=== PATIENT | female | born 1995 | race Caucasian/White ===

== ENCOUNTER 2022-07-25 14:04 | Outpatient (CLI) | payer BC, SELFPAY ==
--- OUTSIDE RECORDS SUMMARY | 2022-07-25 14:08 | XMS_ITS | Clinical Summary ---
:1995 Author Organization [facility] [place] [address] Care Team Providers Name Role Phone Pcp, No Primary Care Provider Unavailable Allergies No known active allergies Medications Medication Sig Dispensed Refills Start Date End Date Status norethindrone, Take 1 Tablet 3 Packet 3 01/03/2022 Active Contraceptive, (0.35 mg) by (Marisa CRYSTAL,) 0.35 mg mouth once tabletIndications: daily. Encounter for initial prescription of contraceptive pills Active Problems Problem Noted Date Pap smear for cervical cancer screening 12/20/2021 Overview: 12/2021 NIL. Plan:Pap/HPV due 12/2024 Family History Medical History Relation Name Comments Hyperlipidemia Father No Known Problems Mother No Known Problems Sister 1 No Known Problems Sister 2 Relation Name Status Comments Father Alive Mother Alive Sister 1 Alive Sister 2 Alive Social History Tobacco Use Types Packs/Day Years Used Date Never Smoker Smokeless Tobacco: Never Used Tobacco Cessation: Counseling Given: Yes Alcohol Use Standard Drinks/Week Comments Yes 0 (1 standard drink = 0.6 oz pure alcoho l) Sex Assigned at Date Recorded Not on file Obstetrics History Para Term AB IAB SAB Ectopic Multiple Living Live Births 0 0 0 0 0 0 0 0 0 0 0 Last Filed Vital Signs Vital Sign Reading Time Taken Comments Blood Pressure 142/80 01/03/2022 12:04 PM FINANCE ADMIN manual Pulse 62 01/03/2022 11:16 AM FINANCE ADMIN Temperature - - Respiratory Rate - - Oxygen Saturation 100% 01/03/2022 11:16 AM FINANCE ADMIN Inhaled Oxygen Concentration - - Weight 58.1 kg (128 lb) 01/03/2022 11:16 AM FINANCE ADMIN Height 166.5 cm (5' 5.55) 01/03/2022 11:16 AM FINANCE ADMIN Body Mass Index 20.94 01/03/2022 11:16 AM FINANCE ADMIN Plan of Treatment Health Maintenance Due Date Last Done Comments COVID-19 vaccine series (#1) 1993 Tdap 2004 Hepatitis C screening for age 18-79 2011 Tetanus booster 2013 Influenza for age 9-49 07/20/2022 BMI (ht and wt on same day) for age 18+ 01/03/2023 01/03/20 Depression screening for age 12+ 01/03/2023 01/03/2022 Pap test for age 21-65 01/03/2025 01/03/2022 Results Not on filefrom Last 3 Months Insurance Payer Benefit Plan / Subscriber ID Effective Dates Phone Addre ss Type Group BLUE CROSS BLUE CROSS OF [id number] 2021-[facility] [address] [facility] [place] [address] Care Teams Scholastic Aptitude Test Grader Relationship Specialty Start Date End Date Pcp, No PCP - General 01/03/22 .
[2022-07-25 17:22] LABS: Hepatitis B Surface Antigen* Negative (Negative)
[2022-07-25 17:33] LABS: HIV 1/2/P24 Combo Screen* Negative (Negative)
[2022-07-25 17:40] LABS: Hepatitis C Virus Antibody* Negative (Negative)
[2022-07-25 18:59] LABS: Chlamydia DNA Amplified* NOT DETECTED (No Detected); GC DNA Amplified* NOT DETECTED (No Detected)
[2022-07-27 17:20] LABS: Rapid Plasma Reagin (RPR) Non Reactive (Non Reactive)
[2022-07-27 23:17] LABS: Rubella Antibody IgG 26.5 IU/mL
== END 2022-07-25 14:05 | disposition home or self-care (01) ==
PROVIDERS: Visit Provider Registered Nurse
DX: Z34.91 Encounter for supervision of normal pregnancy, unspecified, first trimester (principal)
CPT/HCPCS: 76817; 86592; 86703; 86762; 86803; 86850; 86900; 86901; 87086; 87340; 87491; 87591

== ENCOUNTER 2022-08-22 10:08 | Outpatient (CLI) | payer BC, SELFPAY ==
--- OUTSIDE RECORDS SUMMARY | 2022-08-22 10:11 | XMS_ITS | Clinical Summary ---
:1995 Author Organization [facility] [place] [address] Care Team Providers Name Role Phone Pcp, [...] Comments Blood Pressure 142/80 01/03/2022 12:04 PM HOSPITAL FELLOW manual Pulse 62 01/03/2022 11:16 AM HOSPITAL FELLOW Temperature - - Respiratory Rate - - Oxygen Saturation 100% 01/03/2022 11:16 AM HOSPITAL FELLOW Inhaled Oxygen Concentration - - Weight 58.1 kg (128 lb) 01/03/2022 11:16 AM HOSPITAL FELLOW Height 166.5 cm (5' 5.55) 01/03/2022 11:16 AM HOSPITAL FELLOW Body Mass Index 20.94 01/03/2022 11:16 AM HOSPITAL FELLOW Plan of Treatment Health Maintenance Due Date [...] Type Group BLUE CROSS BLUE CROSS OF [id number] 2021-[facility] [address] [facility] [place] [address] Care Teams Incident Response Engineer Relationship Specialty Start Date End Date Pcp, No PCP - General 01/03/22 .
[2022-08-22 11:08] LABS: Total Protein Urine 6 mg/dL
[2022-08-22 11:11] LABS: Creatinine Urine 175.1 mg/dL
[2022-08-22 12:45] LABS: Alanine Aminotransferase* 16 U/L (4-35); Aspartate Amino Transferase* 24 U/L (12-35); Creatinine* 0.6 mg/dL (0.5-1.5); Estimated Glomerular Filt Rate 125 ml/min
[2022-08-22 12:46] LABS: Blood Urea Nitrogen* 11 mg/dL (5-24)
== END 2022-08-22 10:09 | disposition home or self-care (01) ==
PROVIDERS: Visit Provider Obstetrics & Gynecology
DX: O10.911 Unspecified pre-existing hypertension complicating pregnancy, first trimester (principal)
CPT/HCPCS: 82565; 82570; 84156; 84450; 84460; 84520

== ENCOUNTER 2022-10-17 09:09 | Outpatient (CLI) | payer BC, SELFPAY ==
--- OUTSIDE RECORDS SUMMARY | 2022-10-17 09:11 | XMS_ITS | Clinical Summary ---
:1995 Author Organization [employer] [facility] [place] [address] Care Team Providers Name Role Phone Pcp, [...] Comments Blood Pressure 142/80 01/03/2022 12:04 PM SERVICER COIN MACHINES manual Pulse 62 01/03/2022 11:16 AM SERVICER COIN MACHINES Temperature - - Respiratory Rate - - Oxygen Saturation 100% 01/03/2022 11:16 AM SERVICER COIN MACHINES Inhaled Oxygen Concentration - - Weight 58.1 kg (128 lb) 01/03/2022 11:16 AM SERVICER COIN MACHINES Height 166.5 cm (5' 5.55) 01/03/2022 11:16 AM SERVICER COIN MACHINES Body Mass Index 20.94 01/03/2022 11:16 AM SERVICER COIN MACHINES Plan of Treatment Health Maintenance Due Date Last Done Comments COVID-19 vaccine series (#1) 1993 Tdap 2004 HIV for age 15-65 2008 Hepatitis C screening for age 18-79 2011 [...] Type Group BLUE CROSS BLUE CROSS OF [id number] 2021-[facility] [address] [place] [address] Care Teams Mandate Retail Service Merchandiser Relationship Specialty Start Date End Date Pcp, No PCP - General 01/03/22 .
--- NOTE | 2022-10-17 09:15 | CRLHL7_ITS ---
For Patients: As a result of the Century Cures Act, medical imaging exams and procedure reports are released immediately into your electronic medical record. You may view this report before your referring provider. If you have questions, please contact your health care provider. INDICATION: Evaluate anatomy. COMPARISON: 07/25/2022 TECHNIQUE: Real time ernst scale imaging of the fetus was performed as well as color Doppler analysis of the umbilical vessels. FINDINGS: Sonographic imaging demonstrates a single living intrauterine gestation. Fetus demonstrates a regular cardiac rate of 166 beats per minute. Fetus has a vertex position. The placenta lies anteriorly without evidence of placenta previa. The edge of the placenta is located 3.1 cm from the internal cervical os. Amniotic fluid volume appears normal. Single deepest vertical pocket: 3.3 cm. The cervix is closed and measures 3.7 cm in length. The composite ultrasound gestational age is calculated at 20 weeks 6 days with an estimated sonographic due date of 02/28/2023. The estimated weight is 362 grams which lies at the 37th %. The following biometric measurements were obtained: Biparietal diameter: 4.6 cm/19 weeks 6 days 16th% Head circumference: 17.6 cm/20 weeks 1 day 16th% Abdominal circumference: 16.0 cm/21 weeks 1 day 56th% Femur length: 3.3 cm/20 weeks 1 day 22nd% The HC/AC ratio measures: 1.10 range (1.06-1.25) On anatomic survey, there is a normal appearance of the cerebral ventricles, cavum septi pellucidi, cisterna magna and cerebellum. The nose, lips, and facial profile appear normal. The cervical, thoracic and lumbar spine are well visualized and appear normal. There is a normal four-chamber heart view and the left and right ventricular outflow tracts appear normal. The diaphragm and stomach appear normal. The kidneys and bladder also appear normal. There is a normal three-vessel cord and cord insertion site. The four extremities appear normal. IMPRESSION: Normal OB ultrasound exam with concordance of clinical and sonographic dating. No intrinsic abnormalities noted on anatomic survey. Dictated by Hemanth Alvarez MD @ 10/17/2022 11:11:08 AM (Electronically Signed)
== END 2022-10-17 09:10 | disposition home or self-care (01) ==
LOC: US 09:09
PROVIDERS: Visit Provider Advanced Practice Midwife
DX: Z34.82 Encounter for supervision of other normal pregnancy, second trimester (principal); Z3A.20 20 weeks gestation of pregnancy
CPT/HCPCS: 76805

== ENCOUNTER 2022-12-08 13:34 | Outpatient (CLI) | payer BC, SELFPAY ==
[2022-12-10 19:53] LABS: Rapid Plasma Reagin (RPR) Non Reactive (Non Reactive)
== END 2022-12-08 13:35 | disposition home or self-care (01) ==
PROVIDERS: Visit Provider Advanced Practice Midwife
DX: Z34.93 Encounter for supervision of normal pregnancy, unspecified, third trimester (principal)
CPT/HCPCS: 86592

== ENCOUNTER 2022-12-15 08:09 | Outpatient (CLI) | payer BC, SELFPAY ==
[2022-12-15 08:20] LABS: Glucose Fasting Check 89 mg/dl (60-115)
[2022-12-15 12:34] LABS: Glucose 1 Hour Gest 175 mg/dl (70-180)
[2022-12-15 12:34] LABS: Glucose GTT-Gestational 3 Hr 101 mg/dl (70-140)
== END 2022-12-15 08:10 | disposition home or self-care (01) ==
LOC: NFLDREF 08:10
PROVIDERS: Visit Provider Physician Assistant
DX: Z34.93 Encounter for supervision of normal pregnancy, unspecified, third trimester (principal); Z3A.30 30 weeks gestation of pregnancy
CPT/HCPCS: 82951; 82952

== ENCOUNTER 2023-01-09 08:34 | Outpatient (CLI) | payer BC, SELFPAY ==
--- NOTE | 2023-01-09 08:45 | CRLHL7_ITS ---
For Patients: As a result of the Century Cures Act, medical imaging exams and procedure reports are released immediately into your electronic medical record. You may view this report before your referring provider. If you have questions, please contact your health care provider. INDICATION: chronic HTN, COVID in TECHNIQUE: Real time ernst scale imaging of the fetus was performed. COMPARISON: 10.17.22 FINDINGS: Sonographic imaging demonstrates a single living intrauterine gestation. Fetus demonstrates a regular cardiac rate of 142 beats per minute. Fetus has a vertex position. The placenta lies anteriorly. Amniotic fluid volume appears normal and there is a single deepest pocket of 5.8 cm. The estimated weight is 1gm which lies at the 41st %. On the prior OB ultrasound dated 10/17/2022 the estimated weight was at the 37th percentile. BPD 28th percentile. HC 23rd percentile. AC 53rd percentile. FL 38th percentile. The fetus was active and demonstrated normal breathing movements. There was normal flexion and extension of the trunk and extremities. IMPRESSION: Normal biophysical profile score 8/8. Sonographic gestational age 32 weeks 5 days and sonographic due date 03/01/2023. Good correlation with dates with normal interval growth. Estimated weight 41st percentile. Abdominal circumference 53rd percentile. Dictated by Hemanth Alvarez MD @ 01/09/2023 9:46:23 AM (Electronically Signed)
== END 2023-01-09 08:35 | disposition home or self-care (01) ==
LOC: US 08:35
PROVIDERS: Visit Provider Physician Assistant
DX: O10.913 Unspecified pre-existing hypertension complicating pregnancy, third trimester (principal); O98.513 Other viral diseases complicating pregnancy, third trimester; U07.1 COVID-19; Z3A.32 32 weeks gestation of pregnancy
CPT/HCPCS: 76816; 76819; 82565; 82570; 84156; 84450; 84460; 84520; 84550

== ENCOUNTER 2023-01-16 10:15 | Outpatient (CLI) | payer BC, SELFPAY ==
[2023-01-16 12:04] LABS: Total Protein Urine 15 mg/dL
[2023-01-16 12:05] LABS: Creatinine Urine 142.2 mg/dL
[2023-01-16 13:20] LABS: Alanine Aminotransferase* 18 U/L (4-35); Aspartate Amino Transferase* 24 U/L (12-35); Creatinine* 0.6 mg/dL (0.5-1.5); Estimated Glomerular Filt Rate 125 ml/min
== END 2023-01-16 10:16 | disposition home or self-care (01) ==
PROVIDERS: Visit Provider Obstetrics & Gynecology
DX: O16.3 Unspecified maternal hypertension, third trimester (principal); Z3A.33 33 weeks gestation of pregnancy
CPT/HCPCS: 82565; 82570; 84156; 84450; 84460

== ENCOUNTER 2023-01-18 15:04 | Outpatient (CLI) | payer BC, SELFPAY | END 2023-01-18 15:05 | disposition home or self-care (01) | LOC: NFLDREF 15:05 | PROVIDERS: Visit Provider Obstetrics & Gynecology | DX: Z34.93 Encounter for supervision of normal pregnancy, unspecified, third trimester (principal); Z3A.33 33 weeks gestation of pregnancy | CPT/HCPCS: 82570; 84156 ==

== ENCOUNTER 2023-01-22 09:41 | Outpatient (CLI) | payer BC, SELFPAY | END 2023-01-22 09:42 | disposition home or self-care (01) | PROVIDERS: Visit Provider Obstetrics & Gynecology | DX: O13.3 Gestational [pregnancy-induced] hypertension without significant proteinuria, third trimester (principal); Z3A.34 34 weeks gestation of pregnancy | CPT/HCPCS: 82570; 84156 ==

== ENCOUNTER 2023-01-26 09:02 | Outpatient (CLI) | payer BC, SELFPAY ==
--- NOTE | 2023-01-26 09:15 | CRLHL7_ITS ---
For Patients: As a result of the Century Cures Act, medical imaging exams and procedure reports are released immediately into your electronic medical record. You may view this report before your referring provider. If you have questions, please contact your health care provider. INDICATION: Chronic HTN, COVID in COMPARISON: 01/09/2023 TECHNIQUE: Real time ernst scale imaging of the fetus was performed. Without non-stress testing. FINDINGS: Sonographic imaging demonstrates a single living intrauterine gestation. Fetus demonstrates a regular cardiac rate of 155 beats per minute. Fetus has a vertex position. The amniotic fluid volume appears normal and there is a single deepest pocket measurement of 5.4 cm. A 517.6 cm. The fetus was active and demonstrated normal breathing movements. There was normal flexion and extension of the trunk and extremities. IMPRESSION: Normal biophysical profile score of 8 out of 8. Dictated by Hemanth Alvarez MD @ 01/26/2023 11:03:53 AM (Electronically Signed)
== END 2023-01-26 09:03 | disposition home or self-care (01) ==
PROVIDERS: Visit Provider Obstetrics & Gynecology
DX: O10.919 Unspecified pre-existing hypertension complicating pregnancy, unspecified trimester (principal); O98.519 Other viral diseases complicating pregnancy, unspecified trimester; U07.1 COVID-19
CPT/HCPCS: 76819; 82565; 82570; 84156; 84450; 84460; 84520

== ENCOUNTER 2023-01-30 09:31 | Outpatient (CLI) | payer BC, SELFPAY ==
[2023-01-31 12:57] LABS: Strep B DNA Probe NEGATIVE (Negative)
[2023-01-31 13:09] LABS: Strep B Pen/Amox Allergy No
== END 2023-01-30 09:32 | disposition home or self-care (01) ==
PROVIDERS: Visit Provider Obstetrics & Gynecology
DX: Z34.93 Encounter for supervision of normal pregnancy, unspecified, third trimester (principal); Z3A.35 35 weeks gestation of pregnancy
CPT/HCPCS: 82565; 82570; 84156; 84450; 84460; 84520; 87081; 87653

== ENCOUNTER 2023-02-02 07:17 | Outpatient (CLI) | payer BC, SELFPAY ==
--- NOTE | 2023-02-02 07:15 | CRLHL7_ITS ---
For Patients: As a result of the Century Cures Act, medical imaging exams and procedure reports are released immediately into your electronic medical record. You may view this report before your referring provider. If you have questions, please contact your health care provider. INDICATION: CHRONIC HTN, COVID IN COMPARISON: 01/26/2023 TECHNIQUE: Real time ernst scale imaging of the fetus was performed. Without non-stress testing. FINDINGS: Sonographic imaging demonstrates a single living intrauterine gestation. Fetus demonstrates a regular cardiac rate of 137 beats per minute. Fetus has a vertex position. The amniotic fluid volume appears normal and there is a single deepest pocket measurement of 8.2 cm. ALEXIS 21.0 cm. The fetus was active and demonstrated normal breathing movements. There was normal flexion and extension of the trunk and extremities. IMPRESSION: Normal biophysical profile score of 8 out of 8. Dictated by Hemanth Alvarez MD @ 02/02/2023 12:04:38 PM (Electronically Signed)
== END 2023-02-02 07:18 | disposition home or self-care (01) ==
LOC: US 07:18
PROVIDERS: Visit Provider Obstetrics & Gynecology
DX: O13.9 Gestational [pregnancy-induced] hypertension without significant proteinuria, unspecified trimester (principal); O98.512 Other viral diseases complicating pregnancy, second trimester; U07.1 COVID-19
CPT/HCPCS: 76819

== ENCOUNTER 2023-02-05 08:36 | Outpatient (CLI) | payer BC, SELFPAY ==
--- NOTE | 2023-02-05 08:45 | CRLHL7_ITS ---
For Patients: As a result of the Century Cures Act, medical imaging exams and procedure reports are released immediately into your electronic medical record. You may view this report before your referring provider. If you have questions, please contact your health care provider. INDICATION: + COVID in , hypertension. TECHNIQUE: Real time ernst scale imaging of the fetus was performed. COMPARISON: FINDINGS: Sonographic imaging demonstrates a single living intrauterine gestation. Fetus demonstrates a regular cardiac rate of 154 beats per minute. Fetus has a vertex position. The placenta lies anterior. Amniotic fluid volume appears normal and there is a single deepest pocket of 5.6 cm. The estimated weight is 3296gm which lies at the 83rd %. On the prior OB ultrasound dated 01/09/2023 the estimated weight was at the 41st percentile. BPD 31st percentile. HC 44th percentile. AC greater than 97th percentile. FL 51st percentile. The fetus was active and demonstrated normal breathing movements. There was normal flexion and extension of the trunk and extremities. IMPRESSION: Normal biophysical profile score 8/8. Sonographic gestational age 37 weeks 1 day and sonographic due date 02/25/2023. Good correlation with dates. Normal interval growth. Estimated weight 83rd percentile. Abdominal circumference greater than 97th percentile. Dictated by Hemanth Alvarez MD @ 02/05/2023 9:46:08 AM (Electronically Signed)
== END 2023-02-05 08:37 | disposition home or self-care (01) ==
LOC: US 08:36
PROVIDERS: Visit Provider Physician Assistant
DX: O10.913 Unspecified pre-existing hypertension complicating pregnancy, third trimester (principal); O98.513 Other viral diseases complicating pregnancy, third trimester; U07.1 COVID-19; Z3A.37 37 weeks gestation of pregnancy
CPT/HCPCS: 76816; 76819; 82565; 82570; 84156; 84450; 84460; 84520

== ENCOUNTER 2023-02-16 09:03 | Outpatient (CLI) | payer BC, SELFPAY ==
--- NOTE | 2023-02-16 09:15 | CRLHL7_ITS ---
For Patients: As a result of the Century Cures Act, medical imaging exams and procedure reports are released immediately into your electronic medical record. You may view this report before your referring provider. If you have questions, please contact your health care provider. INDICATION: Hypertension in . Evaluate well-being. TECHNIQUE: Transabdominal obstetrical ultrasound. COMPARISON : February 05, 2023. FINDINGS: Single living intrauterine in vertex presentation. Anterior placenta. heart rate 157 beats per minute. Biophysical profile score 8/8 with 2 points given each for breathing, movement, tone, and amniotic fluid. Single deepest pocket measurement of amniotic fluid is 7.0 cm. Previously on February 05, 2023 in the single deepest pocket measurement was 5.6 cm. Amniotic fluid volume index is toward the upper limit of normal at 23.3 cm. IMPRESSION: Biophysical profile score 8/8. Dictated by Milo Balbuena MD @ 02/16/2023 9:59:38 AM (Electronically Signed)
== END 2023-02-16 09:04 | disposition home or self-care (01) ==
LOC: US 09:04
PROVIDERS: Visit Provider Obstetrics & Gynecology
DX: O13.9 Gestational [pregnancy-induced] hypertension without significant proteinuria, unspecified trimester (principal)
CPT/HCPCS: 76819

== ENCOUNTER 2023-02-21 16:18 | Inpatient (IN) | payer BC, SELFPAY ==
[2023-02-21 16:37] VITALS: PULSE 79; O2SAT 98
[2023-02-21 16:41] VITALS: TEMP 36.5
[2023-02-21 16:42] VITALS: BP 136/81; PULSE 71
[2023-02-21 16:46] VITALS: BMI 27.6
[2023-02-21 17:54] LABS: Basophils Absolute Auto 0.02 K/uL (0.00-0.30); Basophils Percent Auto 0.2 % (0.0-3.0); Eosinophils Absolute Auto 0.05 K/uL (0.00-0.50); Eosinophils Percent Auto 0.5 % (0.0-7.0); Hematocrit 40.6 % (33.0-51.0); Hemoglobin* 13.6 gm/dL (12.0-16.0); Immature Granulocytes Abs Auto 0.04 K/uL (0.00-0.30); Immature Granulocytes Pct Auto 0.4 %; Lymphocytes Percent Auto 18.8 % (20-44); Mean Corpuscular HGB Conc 34 gm/dL (32-36); Mean Corpuscular Hemoglobin 31 pg (26-34); Mean Corpuscular Volume 92 fL (80-100); Monocytes Percent Auto 8.1 % (0.0-11.0); Neutrophils Absolute Auto 7.12 K/uL (1.7-7.0); Platelet Count* 194 K/uL (140-440); RDW Coefficient of Variation % 13.1 % (11.5-15.5); Red Blood Count 4.42 m/uL (4.00-5.20); White Blood Count* 9.89 K/uL (4.50-11.00)
[2023-02-21 18:00] LABS: Slide Review Reflex No
[2023-02-21 18:28] LABS: Alanine Aminotransferase* 18 U/L (4-35); Aspartate Amino Transferase* 25 U/L (12-35); Blood Urea Nitrogen* 11 mg/dL (5-24); Creatinine* 0.7 mg/dL (0.5-1.5); Est. Creatinine Clearance* 111.01; Estimated Glomerular Filt Rate 120 ml/min
--- NOTE | 2023-02-21 18:38 | P.LDBA_ITS ---
Subjective History of Present Illness Date Seen: 02/21/23 Narrative: Patient is being admitted to Labor and Delivery for IOL in the setting of CHTN controlled on medication. She is a 27 year old at 38 6/7 weeks gestation. Her full history and physical was dictated by Dr. Ralph on 01/30/23. Please see this for details. Comments: Expected Delivery Route/Plan H&P 01/30/23 Dr. Ralph IOL scheduled for 02/22/2023, with cervical ripening evening of 02/21/2003. Specific Issues/Plans G1 ? ? : [place] ? ? ? Patient works as a pharmacist. Baby: Boy! [place] Name. 1. Chronic HTN with superimposed gestational exacerbation.? BP at 8 weeks 130/88, 144/78.? Persistent elevations beginning 33 weeks (01/16/23) * Baseline preE labs 08/22/22:? entirely normal, prot:Cr = 0 * Normal pre E labs 01/16/2023 * Growth with BPP ordered for 32 weeks:EFW: 41%, BPD: 28%, HC: 23%, AC: 53%, FL: 38%. SDP: 5.8cm. Vertex. BPP 8/8 * US 36 4/7 wks (02/05/23): BPP 8/8.? Vertex, SD P 5.6 cm.? EFW 83%, 7 lb, 4 oz. BPD 31%, HC 44%, AC >97%, FL >51%. * Elevated BP at 34 weeks.? Meets diagnostic criteria for gestational hypertension without severe features.??Increase frequency of antepartum testing to twice weekly (BPP alternating with NST), weekly urine P/C * 01/22/23:? Began labetalol 100 mg BID. * Delivery recommended 37-39 6/7 weeks (IOL). Patient favors 39 weeks.? 2. Elevated 1 hour GTT:? 155 * 3 hour GTT: 96H,175,148,100 - NO GDM 3. Covid positive 10/01/22. Out of quarantine 10/11/22 * Growth US at 32 & 36 weeks * 01/09/23 32wks:? Vtx, SDP 5.8 cm, BPP 8/8, EFW 2041 g, 4 lb 8 oz, 41%.? BPD 20%, HC 23%, AC 53%, FL 38% * 02/05/23 36wks: Vtx, SDP 5.6 cm, BPP 8/8, EFW 3296 g, 7 lb 4 oz, 83%.? BPD 31%, HC 44%, AC > 97%, FL 51%. Flu: received COVID:? Completed and boosted x1 Tdap: 12/22/22 ?Pap negative for intraepithelial lesion 01/03/2022 OB - Problem Based A/P Additional Plan (1) Chronic hypertension complicating or reason for care during : Problem details: Induction of labor 02/21/2023 Status: Acute Plan 1. Cook catheter placed, NST showing regular uterine contractions that patient is describing as tightening, will plan to start low dose oxytocin overnight, will not utilize cytotec to avoid risk of tachysystole. 2. Continuos monitoring in the setting of chronic hypertension. 3. Pre E labs upon admission pending 4. Monitor vital signs closely, patient took her regular labetalol dose this morning, plan to give her nighttime dose as well. Will only repeat labs if there is clinical changes concerning for severity of hypertension. 5. GBS negative no need for antibiotic prophylaxis. 6. Patient plans epidural most likely tomorrow, tonight discussed utilizing morphine and vistaril patient is open to this option. Delivery/Labor/Induction Plan Plan: induction Induction method: Intracervical balloon catheter OB Exam Physical Exam Vital signs: Temp Pulse BP Pulse Ox 97.7 F 71 136/81 98 02/21/23 16:41 02/21/23 16:42 02/21/23 16:42 02/21/23 16:37 Detailed Labor and Delivery Exam Patient Gravid: Yes Dilation (cm): 1 Effacement (%): 75 Cervix position: mid Consistency: soft Contraction Frequency: Regular Tachysystole: No Contraction intensity: Mild Fetus (Single) Station: -2 Amniotic Membrane Status: intact Heart Rate Baseline: 150 Monitor Accelerations: Present Monitor Decelerations: None Alf Variability: Moderate (6-25)
[2023-02-21 19:28] LABS: SARS PCR* Negative SARS-CoV-2 (Negative)
[2023-02-21] MEDS: LABETALOL HCL 100 MG TABLET PO (20:36)
[2023-02-21 20:37] VITALS: BP 149/89; PULSE 71; RESP 18; TEMP 36.6
[2023-02-21 23:58] VITALS: BP 126/78; PULSE 68; RESP 16; TEMP 36.6
[2023-02-21] MEDS: LACTATED RINGERS 1000 ML 1,000 ML 124 ML IV (23:58)
[2023-02-21] MEDS: OXYTOCIN 30 unit/500 ML in NS 30 UNIT/500 ML BAG IVPB (23:58)
[2023-02-22] VITALS (51 sets, daily range): BP systolic 109–147; BP diastolic 55–93; PULSE 66–98; RESP 16–20; TEMP 36.3–37; O2SAT 87–100
[2023-02-22] MEDS: MORPHINE 10 MG/ML inj IM (00:01)
[2023-02-22] MEDS: hydrOXYzine pamoate 25 MG CAPSULE 100 MG PO (00:01)
[2023-02-22] MEDS: LACTATED RINGERS 1000 ML 1,000 ML 119 ML IV (07:18)
[2023-02-22] MEDS: ROPIVACAINE 0.2% 100 ml 100 ML 12 MG EPIDURAL (08:14)
--- NOTE | 2023-02-22 08:25 | PM.OBPNL ---
Subjective Time Seen by Provider: 08:25 Date Seen: 02/22/23 Narrative: Subjective: Patient is requesting an epidural for painful contractions. Pitocin: 6 milliunits/minute. Spontaneous rupture membranes occurred at 6:14 a.m. today, clear fluid, GBS negative. Vital signs: Per electronic medical record. EFM: Baseline 110-120 bpm, + accelerations, + decelerations: c/w early decels, moderate variability, reactive. Category 2: But reassuring with excellent variability and accelerations. [place]: Contractions every 2-4 minutes. SVE: 5 cm/100 %/0. Assessment: 27-year-old 1 para 0 at 38 weeks 6 days gestation undergoing induction of labor for chronic hypertension with superimposed gestational hypertension. No evidence of preeclampsia. Plan: 1. Continue Pitocin per labor induction protocol. 2. The patient is getting an epidural currently for labor analgesia 3. Blood pressures have varied between 117-145/67-85. 4. The patient denies headaches, visual disturbance, right upper quadrant/midepigastric pain, nausea/vomiting and edema. Objective Vital Signs: Last Vital Signs Temp 97.8 F 02/22/23 07:40 Pulse 78 02/22/23 08:24 Resp 18 02/22/23 07:40 BP 133/74 02/22/23 08:24 Pulse Ox 99 02/22/23 08:23 Pelvic Exam Dilation (cm): 5 Effacement (%): 100 Station: 0 Contractions Monitor mode: External Contraction pattern: Regular Contraction intensity: Moderate Pitocin Rate (mU/min): 6 Assessment Assessment: active labor and induction ongoing Station: 0 Status: Category ll Heart Rate Baseline: 110 Historiography Teacher Variability: Moderate (6-25) Monitor Accelerations: Present Monitor Decelerations: Early
--- NOTE | 2023-02-22 08:31 | PM.ANBPRC ---
[facility] Medical History Migraine with aura Family History Other Heart disease High cholesterol Social History (Updated 01/30/23 @ 09:37 by Bushra Ralph MD) Narrative: Lives in [place] with . Works at [employer]. No smoking, alcohol, recreational drugs. Smoking Status: Never smoker Little interest or pleasure in doing things: not at all Feeling down, depressed, or hopeless: not at all Meds Home Medications and Allergies Home Medications Medication Instructions Recorded Confirmed Type prenat.vits,boom,aiu-ealn-ntqbq 1 tab PO QDAY 07/25/22 02/21/23 History aspirin 81 mg tablet,delayed 81 mg PO QDAY 09/18/22 02/21/23 History release (Adult Low Dose Aspirin) famotidine 20 mg tablet (Pepcid AC) 20 mg PO QDAY 01/30/23 02/21/23 History Allergies Allergy/AdvReac Type Severity Reaction Status Date / Time No Known Drug Allergies Allergy Verified 02/22/23 04:21 Results Labs Labs: Laboratory Results - last 24 hr 02/21/23 02/21/23 17:47 18:45 WBC 9.89 RBC 4.42 Hgb 13.6 Hct 40.6 MCV 92 MCH 31 MCHC 34 RDW Coeff of Frida 13.1 Plt Count 194 Neut % (Auto) 72.0 Lymph % (Auto) 18.8 L [place] % (Auto) 8.1 Eos % (Auto) 0.5 Baso % (Auto) 0.2 Neut # (Auto) 7.12 H Lymph # (Auto) 1.90 [place] # (Auto) 0.80 Eos # (Auto) 0.05 Baso # (Auto) 0.02 BUN 11 Creatinine 0.7 Estimated Creat Clear 111.01 Estimated GFR 120 AST 25 ALT 18 SARS-CoV-2 (PCR) Negative SARS-CoV-2 Blood Type O Positive Antibody Screen NEGATIVE Vital Signs Vital Signs: Last Vital Signs Temp 97.8 F 02/22/23 07:40 Pulse 79 02/22/23 08:29 Resp 18 02/22/23 07:40 BP 124/73 02/22/23 08:29 Pulse Ox 100 02/22/23 08:28 Weight: 77.7 kg Height: 167.64 cm Anesthesia Procedures Epidural Insertion Patient Location: OB Start Time: 07:50 Stop Time: 08:50 Start Date: 02/22/23 Stop Date: 02/22/23 Reason for Block: procedure for pain Patient Position: sitting Performed By: Suyapa Carrasco Preanesthetic Checklist: IV checked, risks and benefits discussed, monitors and equipment checked, pre-op evaluation, timeout performed and anesthesia consent Prep: chlorhexidine gluconate Monitoring: blood pressure monitoring, continuous pulse oximetry and heart rate Approach: midline Vertebral Space: lumbar (1-5) Epidural Technique: JAMMIE saline Needle Type: Tuohy needle Injection Technique: continuous catheter (continuous catheter) Needle gauge: 17 Needle Length (cm): 10 cm Needle Insertion Depth (cm): 6 Catheter Gauge: 19 Catheter Type: multi-orifice Catheter at skin depth (cm): 15 Test Dose Result: negative and lidocaine 1.5% with epinephrine 1 to 200,000
--- NOTE | 2023-02-22 15:41 | W.PM.VAGDEL1 ---
Procedure Delivery date: 02/22/23 Procedure Done: Global Procedure Details: Patient is a 27 year-old G1 now P1 admitted on 02/21/23 at 38 Weeks, 6 Days gestation for IOL for chronic hypertension.? Cervical exam on admission was [] cm/[] % effaced/[] station with membranes intact in vertex presentation.? Contractions were every [] minutes.? heart rate demonstrated baseline [] bpm with [moderate] variability, [+] accelerations, [-] decelerations; a category [1] tracing.? SROM occurred at 0614 with clear fluid.? Events: Chronic Hypertension Intrapartal Events: Labor Induction and Prolonged 2nd Stage >2.5 Hrs Delivery augmentation: pitocin Delivery monitor: external FHT and external uterine Route of delivery: Episiotomy description: None Laceration description: Perineal - 2nd Degree Delivery repair: Vicryl Estimated blood loss (mL): 175 Anesthesia type: Epidural Disposition: floor Gender: Male presentation: vertex Placental Delivery Description: Spontaneous Cord Description: 3 Vessels cord description comment: cord around the arm and hand by face at delivery OB Vag Delivery Procedures Additional Procedures Laceration Repair: Yes
--- NOTE | 2023-02-22 15:46 | W.PM.OBVAGDE ---
OB Procedure Vag Delivery Mother Details Mother Details: The patient is a 27 year-old, 1, now Para 1, admitted on 02/21/23 at 38.6 Days gestation. : 1 Para: 1 Weeks Gestation: 39.0 Admission Date: 02/21/23 Additional Details Amniotic Membrane Status: SROM Amniotic Membrane Rupture Date: 02/22/23 Amniotic Membrane Rupture Time: 06:14 Amniotic Membrane Fluid Description: Clear Analgesia/Anesthesia Type: Epidural Waterbirth: No Pitcoin: Yes Intrapartal Events: Labor Induction and Prolonged 2nd Stage >2.5 Hrs Induction Method: Intracervical balloon catheter Delivery augmentation: pitocin Labor Onset: 08:33 Complete: 12:14 Pushin:14 Heart: heart tones during second stage were category 2. Baseline 135 with moderate variability, +accels, variable decels to the 70's with good return to baseline. Delivery Details Delivery Date: 02/22/23 Delivery Time: 15:09 Route of delivery: Gender: Male Infant Viability: Alive; Heart Rate Present Position at Delivery: OA Delivery Details: Delivered over intact perineum via spontaneous vaginal delivery. Delivered with hand next to his face and cord wrapped around his arm. Body slow to deliver but did deliver without difficulty. was placed on maternal abdomen.? Cord was clamped and cut after a 3-4 minute delay. Nose and mouth were bulb suctioned. Baby was brougth to the warmer shortly after for grunting but was returned to the maternal chest shortly after.? weight pending. 1 Minute Interval Total Score: 7 5 Minute Interval Total Score: 8 Additional Details Shoulder Dystocia: No Placenta Delivery Time: 15:16 Placental Delivery Description: Spontaneous Delivery repair: Vicryl Procedure Done: Global Blood Loss: 175 Laceration: Perineal - 2nd Degree Episiotomy Description: None Blood Loss Measurement Type: QBL Bakri Used: No Sponge/Need Count Correct: Yes Cord Vessel Description: 3 Vessels Event Summary Status: Mother and infant were stable after delivery. Disposition: floor
[2023-02-22] MEDS: LABETALOL HCL 100 MG TABLET PO (17:29)
[2023-02-22] MEDS: IBUPROFEN 600 MG TABLET PO (19:44)
[2023-02-22] MEDS: ACETAMINOPHEN 500 MG TABLET 1000 MG PO (23:43)
[2023-02-23] MEDS: IBUPROFEN 600 MG TABLET PO ×3 (04:58→18:29)
[2023-02-23 05:01] VITALS: BP 120/81; PULSE 87; RESP 20; TEMP 36.6; O2SAT 98
--- NOTE | 2023-02-23 08:02 | P.OBPN_ITS ---
Documented by User: Jamaal Durbin 02/23/23 08:13 OB - PN:Subj Subjective Date Seen: 02/23/23 Patient comments OB post-: no complaints and pain well controlled [place] infant status: [place] feeding status: exclusively Narrative: The patient feels well.? The pain is well controlled with current medications.? She has no new complaints.? Urinary output is adequate and she is voiding without difficulty.? Has a good appetite, is tolerating a general diet, is passing flatus, and has not yet had a bowel movement.? Has scant amount of rubra lochia.? She is ambulating well. She is and reports it is going well. OB - PN: Obj Exam Physical Exam: Vital signs: Temp Pulse Resp BP Pulse Ox O2 Del Method 98 F 87 20 120/81 98 Room Air 02/23/23 05:01 02/23/23 05:01 02/23/23 05:01 02/23/23 05:01 02/23/23 05:01 02/23/23 05:01 Narrative: GENERAL APPEARANCE:? normal affect, alert, no distress? MOOD:? appropriate? CHEST:? clear to auscultation? HEART:? regular rate and rhythm? ABDOMEN:? soft, non-tender the uterine fundus is firm At Umbilicus, Midline and is appropriate for the stage of recovery.? PERINEUM:? mild edema of the perineum, there is a Perineal Laceration,? 2nd degree that is healing well.? EXTREMITIES:? normal and trace edema OB - PN: A/P Vaginal Delivery Assessment and Plan (1) care and examination immediately after delivery: Status: Acute (2) Chronic hypertension complicating or reason for care during : Problem details: Induction of labor 02/21/2023 Status: Acute (3) Lactating mother: Status: Acute Plan day: 1 Plan: routine care Comments: Lactating mother may see if desires. Documented by User: Yamila Marie CNM 02/23/23 08:25 OB - PN: A/P Vaginal Delivery Assessment and Plan (1) care and examination immediately after delivery: Status: Acute (2) Chronic hypertension complicating or reason for care during : Problem details: Induction of labor 02/21/2023 Status: Acute (3) Lactating mother: Status: Acute Plan Comments: Lactating mother may see if desires. Chronic HTN. Continue to monitor blood pressure while admitted. Anticipate discharge home tomorrow, 02/23.
[2023-02-23 08:39] VITALS: BP 118/76; PULSE 87; RESP 16; TEMP 36.6; O2SAT 97
[2023-02-23] MEDS: ACETAMINOPHEN 500 MG TABLET 1000 MG PO ×3 (08:45→20:55)
[2023-02-23] MEDS: LABETALOL HCL 100 MG TABLET PO ×2 (08:45→20:56)
[2023-02-23] MEDS: DOCUSATE SODIUM 100 MG CAPSULE PO (08:45)
[2023-02-23 12:18] VITALS: BP 114/74; PULSE 95; RESP 16; TEMP 36.9; O2SAT 96
[2023-02-23 16:47] VITALS: BP 122/80; PULSE 81; RESP 16; TEMP 36.6; O2SAT 98
[2023-02-23 20:50] VITALS: BP 118/78; PULSE 82; RESP 16; TEMP 36.6; O2SAT 98
[2023-02-24 00:31] VITALS: BP 116/81; PULSE 71; RESP 16; O2SAT 97
[2023-02-24] MEDS: IBUPROFEN 600 MG TABLET PO ×2 (00:34→08:40)
[2023-02-24 03:44] VITALS: BP 116/81; PULSE 86; RESP 16; TEMP 36.6; O2SAT 97
[2023-02-24] MEDS: ACETAMINOPHEN 500 MG TABLET 1000 MG PO (04:03)
[2023-02-24 08:22] LABS: Hemoglobin* 11.9 gm/dL (12.0-16.0)
[2023-02-24] MEDS: LABETALOL HCL 100 MG TABLET PO (08:40)
[2023-02-24] MEDS: DOCUSATE SODIUM 100 MG CAPSULE PO (08:40)
[2023-02-24 09:10] VITALS: BP 127/88; PULSE 79; RESP 18; TEMP 37.1; O2SAT 97
== END 2023-02-24 10:30 | disposition home or self-care (01) | DRG 560 ==
PROVIDERS: Advanced Practice Midwife; Admitting Provider Obstetrics & Gynecology; Visit Provider Obstetrics & Gynecology
DX: O10.92 Unspecified pre-existing hypertension complicating childbirth (principal); O76 Abnormality in fetal heart rate and rhythm complicating labor and delivery; O70.1 Second degree perineal laceration during delivery; Z3A.38 38 weeks gestation of pregnancy; Z37.0 Single live birth
CPT/HCPCS: 01967; 36415; 59200; 82565; 84450; 84460; 84520; 85018; 85025; 86850; 86900; 86901; 87635; A9270; C1726; J2270; J2370; J2795; J7120

== ENCOUNTER 2024-05-19 10:04 | Outpatient (CLI) | payer BC, SELFPAY ==
--- OUTSIDE RECORDS SUMMARY | 2024-05-19 10:50 | XMS_ITS | Clinical Summary ---
Author Organization [employer] [facility] [facility] Address [place], [place] [address] Care Team Providers Care Successfactors Consultant Name Role Phone Pcp, No Primary Care Provider Unavailabl e Allergies No known active allergies Medications Medication Sig Dispensed Refills Start Date End Date Status norethindrone, Contraceptive, (MICRONOR, 28,) 0.35 mg tabletIndications:Encou nter for initial prescription of contraceptive pills Take 1 Tablet (0.35 mg) by mouth once daily. 3 Packet 3 01/03/2022 Active Active Problems Problem Noted Date Diagnosed Date Pap smear for cervical cancer screening 12/20/19 Overview: 12/2021 NIL. Plan:Pap/HPV due 12/2024 Family History Medical History Relation Name Comments Hyperlipidemia Father No Known Problems Mother No Known Problems Sister 1 No Known Problems Sister 2 Relation Name Status Comments Father Alive Mother Alive Sister 1 Alive Sister 2 Alive Social History Tobacco Use Types Packs/Day Years Used Date Smoking Tobacco: Never Smokeless Tobacco: Never Tobacco Cessation:Counseling Given: Yes Alcohol Use Standard Drinks/Week Comments Yes 0 (1 standard drink = 0.6 oz pur e alcohol) PHQ-2 Answer Date Recorded PHQ-2 TOTAL SCORE 0 01/03/2022 Social Connections Answer Date Recorded Frequency of Communication with Friends and Fami ly Not on file 01/03/2022 Alcohol Use Answer Date Recorded How often do you have a drink containing alcohol ? 2 01/03/2022 How many drinks containing a lcohol do you have on a typical day when you are drinking? 0 01/03/2022 Frequency of Binge Drinking Not on file 12/20 Financial Resource Strain Answer Date R ecorded Difficulty of Paying Living Expenses Not on file 01/03/2022 Difficulty of Paying Living Expenses Not on file 01/03/2022 Sex and Gender Information Value Date Recorded Sex Assigned at Not on file Gender Identity Not on file Sexual Orientation Not on file Obstetrics History Para Term AB IAB SAB Ectopic Multiple Livin g Live Births 0 0 0 0 0 0 0 0 0 0 0 Last Filed Vital Signs Vital Sign Reading Time Taken Comments Blood Pressure 142/80 01/03/2022 12:04 PM ETHYLBENZENE OXIDIZER ma nual Pulse 62 01/03/2022 11:16 AM ETHYLBENZENE OXIDIZER Temperature - - Respiratory Rate - - Oxygen Saturation 100% 01/03/2022 11:16 AM ETHYLBENZENE OXIDIZER Inhaled Oxygen Concentration - - Weight 58.1 kg (128 lb) 01/03/2022 11:16 AM ETHYLBENZENE OXIDIZER Height 166.5 cm (5' 5.55) 01/03/2022 11:[address] Body Mass Index 20.94 01/03/2022 11:16 AM ETHYLBENZENE OXIDIZER Plan of Treatment Health Maintenance Due Date Last Done Comments Tdap 2004 HIV for age 15-65 2008 Hepatitis C screening for ag e 18-79 2011 Tetanus booster 2013 BMI (ht and wt on same day) for age 18+ 01/03/2023 01/03/2022 Depression screening for age 12+ 01/03/2023 01/03/20 COVID-19 vaccine series ( season) 2023 Influenza for age 9-49 07/20/2024 Pap test for age 21-65 01/03/2025 01/03/2022 Pneumococcal series for age 6-64 Aged Out No longer eligible based on patient's age to complete this topic Procedures Procedure Name Priority Date/Time Associated Diagnosis Comments PROGRAM OR PROJECT ADMINISTRATOR THIN PREP PAP SCREEN IMAGED Routine 01/03/2022 11:52 AM ETHYLBENZENE OXIDIZER Cervical cancer screening from Last 3 Months or Most Recently Relevant to Health Maintenance Results * PROGRAM OR PROJECT ADMINISTRATOR THIN PREP PAP SCREEN IMAGED (01/03/2022 11:52 AM ETHYLBENZENE OXIDIZER) Case Report Gynecologic Cytology Report ? Case: [id number] ? Authorizing Provider: ??Jana Ragsdale DO ?Collected: ? 01/03/2022 1152 ? Ordering Location: ? [facility] ?? Received: ?01/03/2022 1227 ? Clinic ? First Screen: ?Anastasia Vann ? Specimen: ?PROGRAM OR PROJECT ADMINISTRATOR ThinPrep Vial Screening, Cervical ? 01/12/2022 9:19 AM [facility] LABORATORY-C ENTRAL LABORATORY INTERPRETATION/ RESULT NEGATIVE FOR INTRAEPITHELIAL LESION OR MALIGNANCY (NIL) (none) 01/12/2022 9:19 AM [facility] LABORATORY-C ENTRAL LABORATORY IMEN ADEQUACY Satisfactory for evaluation Endocervical component present 01/12/2022 9:19 AM [facility] LABORATORY-C ENTRAL LABORATORY HPV REQUEST HPV if ASCUS 01/12/2022 9:19 AM [facility] LABORATORY-C ENTRAL LABORATORY Date of LMP 12/21/2021 01/12/2022 9:19 AM ETHYLBENZENE OXIDIZER [facility] [employer] [facility]- ENTRAL LABORATORY Last Pap Date 5 years ago 01/12/2022 9:19 AM ETHYLBENZENE OXIDIZER [facility] ENTRAL LABORATORY Last Pap Result NIL 9:19 AM ETHYLBENZENE OXIDIZER [facility] Abnormal Pap or [place] Bx in last 5 years No 01/12/2022 9:19 AM ETHYLBENZENE OXIDIZER [facility] ENTRAL LABORATORY Menstrual Status Regular Periods 01/12/2022 9:19 AM ETHYLBENZENE OXIDIZER [facility] ENTRAL LABORATORY [place] Bx Done Today No 01/12/2022 9:19 AM ETHYLBENZENE OXIDIZER [facility] ENTROH LABORATORY Additional Information None given 01/12/2022 9:19 AM ETHYLBENZENE OXIDIZER [facility] ENTROH LABORATORY Comment: Cytology is screened at [facility] - [address], [place] [address] and [facility] - [address], [place] [address] and [facility] - [address] [place] [address] Interpreted at [facility] - [address], [place] [address] Automated Review Successful 01/12/2022 9:19 AM ETHYLBENZENE OXIDIZER [facility] ENTROH LABORATORY Comment:Specimen processed s uccessfully by automated rack production worker device, ThinPrep Imaging System, [employer] Note The pap test is a screening technique, not a diagnostic procedure. It is used primarily to screen for squamous cancers and precursor lesions. Published studies have shown that it is subject to both false negative and false positive results. The pap test should not be used as the sole means to diagnose or exclude pre-malignant and malignant lesions. 01/12/2022 9:19 AM ETHYLBENZENE OXIDIZER [facility] [employer] [facility] ENTROH LABORATORY Other (Cervical) Non-Blood / Unknown 01/03/2022 11:52 AM ETHYLBENZENE OXIDIZER 01/03/2022 12:27 PM ETHYLBENZENE OXIDIZER Jana Ragsdale DO PATHOLOGY/CYTOLOGY [facility] LABORATORY [address] [place] [address], [place] from Last 3 Months or Most Recently Relevant to Health Maintenance Care Teams Successfactors Consultant Relationship Specialty Start Date End Date Pcp, No . PCP - General 01/03/22
== END 2024-05-19 10:05 | disposition home or self-care (01) ==
LOC: NFLDREF 10:05
PROVIDERS: Visit Provider Advanced Practice Midwife
DX: O20.9 Hemorrhage in early pregnancy, unspecified (principal)
CPT/HCPCS: 84702

== ENCOUNTER 2024-05-21 16:08 | Outpatient (CLI) | payer BC, SELFPAY ==
--- OUTSIDE RECORDS SUMMARY | 2024-05-23 05:50 | XMS_ITS | Clinical Summary ---
Author Organization [employer] [facility] Address [place], [place] [address] Care Team Providers Care Material Handling Equipment Stevedore Name Role Phone Pcp, No Primary Care [...] Comments Blood Pressure 142/80 01/03/2022 12:04 PM EXPERIENCED TRUCK DRIVER ma nual Pulse 62 01/03/2022 11:16 AM EXPERIENCED TRUCK DRIVER Temperature - - Respiratory Rate - - Oxygen Saturation 100% 01/03/2022 11:16 AM EXPERIENCED TRUCK DRIVER Inhaled Oxygen Concentration - - Weight 58.1 kg (128 lb) 01/03/2022 11:16 AM EXPERIENCED TRUCK DRIVER Height 166.5 cm (5' 5.55) 01/03/2022 11:[address] Body Mass Index 20.94 01/03/2022 11:16 AM EXPERIENCED TRUCK DRIVER Plan of Treatment Health Maintenance Due Date [...] Procedure Name Priority Date/Time Associated Diagnosis Comments SALES NEGOTIATOR THIN PREP PAP SCREEN IMAGED Routine 01/03/2022 11:52 AM EXPERIENCED TRUCK DRIVER Cervical cancer screening from Last 3 Months or Most Recently Relevant to Health Maintenance Results * SALES NEGOTIATOR THIN PREP PAP SCREEN IMAGED (01/03/2022 11:52 AM EXPERIENCED TRUCK DRIVER) Case Report Gynecologic Cytology Report ? Case: [id number] ? Authorizing Provider: ??Jana Ragsdale DO ?Collected: ? 01/03/2022 1152 ? Ordering Location: ? [facility] ?? Received: ?01/03/2022 1227 ? Clinic ? First Screen: ?Anastasia Vann ? Specimen: ?SALES NEGOTIATOR ThinPrep Vial Screening, Cervical ? 01/12/2022 9:19 AM [facility]-C ENTRAL LABORATORY INTERPRETATION/ RESULT NEGATIVE FOR INTRAEPITHELIAL LESION OR MALIGNANCY (NIL) (none) 01/12/2022 9:19 AM [facility]-C ENTRAL LABORATORY IMEN ADEQUACY Satisfactory for evaluation Endocervical component present 01/12/2022 9:19 AM [facility]-C ENTRAL LABORATORY HPV REQUEST HPV if ASCUS 01/12/2022 9:19 AM [facility]-C ENTRAL LABORATORY Date of LMP 12/21/2021 01/12/2022 9:19 AM EXPERIENCED TRUCK DRIVER [facility] [employer] [facility]- ENTRAL LABORATORY Last Pap Date 5 years ago 01/12/2022 9:19 AM EXPERIENCED TRUCK DRIVER [facility] ENTRAL LABORATORY Last Pap Result NIL 9:19 AM EXPERIENCED TRUCK DRIVER [facility] Abnormal Pap or [place] Bx in last 5 years No 01/12/2022 9:19 AM EXPERIENCED TRUCK DRIVER [facility] ENTRAL LABORATORY Menstrual Status Regular Periods 01/12/2022 9:19 AM EXPERIENCED TRUCK DRIVER [facility] ENTRAL LABORATORY [place] Bx Done Today No 01/12/2022 9:19 AM EXPERIENCED TRUCK DRIVER [facility] ENTRSC LABORATORY Additional Information None given 01/12/2022 9:19 AM EXPERIENCED TRUCK DRIVER [facility] ENTRSC LABORATORY Comment: Cytology is screened at [facility] - [address], [place] [address] and [facility] - [address], [place] [address] and [facility] - [address] [place] [address] Interpreted at [facility] - [address], [place] [address] Automated Review Successful 01/12/2022 9:19 AM EXPERIENCED TRUCK DRIVER [facility] ENTRSC LABORATORY Comment:Specimen processed s uccessfully by automated gas regulator repairer device, ThinPrep Imaging System, [employer] Note The pap test is a screening technique, not a diagnostic procedure. It is used primarily to screen for squamous cancers and precursor lesions. Published studies have shown that it is subject to both false negative and false positive results. The pap test should not be used as the sole means to diagnose or exclude pre-malignant and malignant lesions. 01/12/2022 9:19 AM EXPERIENCED TRUCK DRIVER [facility] [employer] [facility] ENTRSC LABORATORY Other (Cervical) Non-Blood / Unknown 01/03/2022 11:52 AM EXPERIENCED TRUCK DRIVER 01/03/2022 12:27 PM EXPERIENCED TRUCK DRIVER Jana Ragsdale DO PATHOLOGY/CYTOLOGY [facility] LABORATORY [address] [place] [address], [place] from Last 3 Months or Most Recently Relevant to Health Maintenance Care Teams Material Handling Equipment Stevedore Relationship Specialty Start Date End Date Pcp, No . PCP - General 01/03/22
== END 2024-05-21 16:09 | disposition home or self-care (01) ==
LOC: NFLDREF 05-23 05:49
PROVIDERS: Visit Provider Advanced Practice Midwife
DX: O20.9 Hemorrhage in early pregnancy, unspecified (principal)
CPT/HCPCS: 84702

== ENCOUNTER 2024-08-15 08:22 | Outpatient (CLI) | payer BC, SELFPAY ==
--- OUTSIDE RECORDS SUMMARY | 2024-08-19 21:36 | XMS_ITS | Clinical Summary ---
Author Organization [employer] [facility] Address [place], [place] [address] Care Team Providers Care Plastics Engineer Name Role Phone Pcp, No Primary Care [...] Pap smear for cervical cancer screening 12/20/19 22 Overview (02/09/2022): 12/2021 NIL. Plan:Pap/HPV due 12/2024 Family History [...] Frequency of Binge Drinking Not on file 02/1 03/2022 Financial Resource Strain Answer Date R ecorded [...] Comments Blood Pressure 142/80 01/03/2022 12:04 PM FENCE INSTALLER HELPER ma nual Pulse 62 01/03/2022 11:16 AM FENCE INSTALLER HELPER Temperature - - Respiratory Rate - - Oxygen Saturation 100% 01/03/2022 11:16 AM FENCE INSTALLER HELPER Inhaled Oxygen Concentration - - Weight 58.1 kg (128 lb) 01/03/2022 11:16 AM FENCE INSTALLER HELPER Height 166.5 cm (5' 5.55) 01/03/2022 11:[address] Body Mass Index 20.94 01/03/2022 11:16 AM FENCE INSTALLER HELPER Plan of Treatment Health Maintenance Due Date Last Done Comments Tdap 2004 HIV for age 15-65 2008 Hepatitis C screening for ag e 18-79 2011 Tetanus booster 2013 BMI (ht and wt on same day) for age 18+ 01/03/2023 01/03/2022 Depression screening for age 12+ 01/03/2023 01/03/20 22 COVID-19 vaccine series ( season) 2024 Influenza for age 9-49 07/20/2024 Pap test for age 21-65 01/03/2025 01/03/2022 Pneumococcal series for age 6-64 Aged Out No longer eligible based on patient's age to complete this topic Procedures Procedure Name Priority Date/Time Associated Diagnosis Comments SERVICE UNIT OPERATOR THIN PREP PAP SCREEN IMAGED Routine 01/03/2022 11:52 AM FENCE INSTALLER HELPER Cervical cancer screening from Last 3 Months or Most Recently Relevant to Health Maintenance Results * SERVICE UNIT OPERATOR THIN PREP PAP SCREEN IMAGED (01/03/2022 11:52 AM FENCE INSTALLER HELPER) Case Report Gynecologic Cytology Report ? Case: [id number] ? Authorizing Provider: ??Jana Ragsdale DO ?Collected: ? 01/03/2022 1152 ? Ordering Location: ? [facility] ?? Received: ?01/03/2022 1227 ? Clinic ? First Screen: ?Anastasia Vann ? Specimen: ?SERVICE UNIT OPERATOR ThinPrep Vial Screening, Cervical ? 01/12/2022 9:19 AM [facility] LABORATORY-C ENTRAL LABORATORY INTERPRETATION/ RESULT NEGATIVE FOR INTRAEPITHELIAL LESION OR MALIGNANCY (NIL) (none) 01/12/2022 9:19 AM [facility] LABORATORY-C ENTRAL LABORATORY IMEN ADEQUACY Satisfactory for evaluation Endocervical component present 01/12/2022 9:19 AM [facility] LABORATORY-C ENTRAL LABORATORY HPV REQUEST HPV if ASCUS 01/12/2022 9:19 AM [facility] LABORATORY-C ENTRAL LABORATORY Date of LMP 12/21/2021 01/12/2022 9:19 AM FENCE INSTALLER HELPER [facility] ENTRAL LABORATORY Last Pap Date 5 years ago 01/12/2022 9:19 AM FENCE INSTALLER HELPER [facility] ENTRAL LABORATORY Last Pap Result NIL 9:19 AM FENCE INSTALLER HELPER [facility] Abnormal Pap or [place] Bx in last 5 years No 01/12/2022 9:19 AM FENCE INSTALLER HELPER [facility] ENTRAL LABORATORY Menstrual Status Regular Periods 01/12/2022 9:19 AM FENCE INSTALLER HELPER [facility] ENTRAL LABORATORY [place] Bx Done Today No 01/12/2022 9:19 AM FENCE INSTALLER HELPER [facility] ENTRVA LABORATORY Additional Information None given 01/12/2022 9:19 AM FENCE INSTALLER HELPER [facility] ENTRAL LABORATORY Comment: Cytology is screened at [facility] - [address], [place] [address] and [facility] - [address], [place] [address] and [facility] - [address] [place] [address] [facility] Laboratory - [address], [place] [address] Automated Review Successful 01/12/2022 9:19 AM FENCE INSTALLER HELPER [facility] ENTRVA LABORATORY Comment:Specimen processed s uccessfully by automated napping machine operator device, ThinPrep Imaging System, [employer] Note The pap test is a screening technique, not a diagnostic procedure. It is used primarily to screen for squamous cancers and precursor lesions. Published studies have shown that it is subject to both false negative and false positive results. The pap test should not be used as the sole means to diagnose or exclude pre-malignant and malignant lesions. 01/12/2022 9:19 AM FENCE INSTALLER HELPER [facility] [employer] [facility] ENTRVA LABORATORY Other (Cervical) Non-Blood / Unknown 01/03/2022 11:52 AM FENCE INSTALLER HELPER 01/03/2022 12:27 PM FENCE INSTALLER HELPER Jana Ragsdale DO PATHOLOGY/CYTOLOGY [facility] LABORATORY [address] [place] [address], from Last 3 Months or Most Recently Relevant to Health Maintenance Care Teams Plastics Engineer Relationship Specialty Start Date End Date Pcp, No . PCP - General 01/03/22
== END 2024-08-15 08:23 | disposition home or self-care (01) ==
LOC: NFLDREF 08-19 21:35
PROVIDERS: Visit Provider Advanced Practice Midwife
DX: Z34.82 Encounter for supervision of other normal pregnancy, second trimester (principal)
CPT/HCPCS: 84702

== ENCOUNTER 2024-08-18 16:10 | Outpatient (CLI) | payer BC, SELFPAY ==
--- OUTSIDE RECORDS SUMMARY | 2024-08-20 11:31 | XMS_ITS | Clinical Summary ---
Author Organization [employer] [facility] Address [place], [place] [address] Care Team Providers Care Bag Bleacher Name Role Phone Pcp, No Primary Care [...] Comments Blood Pressure 142/80 01/03/2022 12:04 PM BONDERITE OPERATOR ma nual Pulse 62 01/03/2022 11:16 AM BONDERITE OPERATOR Temperature - - Respiratory Rate - - Oxygen Saturation 100% 01/03/2022 11:16 AM BONDERITE OPERATOR Inhaled Oxygen Concentration - - Weight 58.1 kg (128 lb) 01/03/2022 11:16 AM BONDERITE OPERATOR Height 166.5 cm (5' 5.55) 01/03/2022 11:[address] Body Mass Index 20.94 01/03/2022 11:16 AM BONDERITE OPERATOR Plan of Treatment Health Maintenance Due Date [...] Procedure Name Priority Date/Time Associated Diagnosis Comments RN ADVICE THIN PREP PAP SCREEN IMAGED Routine 01/03/2022 11:52 AM BONDERITE OPERATOR Cervical cancer screening from Last 3 Months or Most Recently Relevant to Health Maintenance Results * RN ADVICE THIN PREP PAP SCREEN IMAGED (01/03/2022 11:52 AM BONDERITE OPERATOR) Case Report Gynecologic Cytology Report ? Case: [id number] ? Authorizing Provider: ??Jana Ragsdale DO ?Collected: ? 01/03/2022 1152 ? Ordering Location: ? [facility] ?? Received: ?01/03/2022 1227 ? Clinic ? First Screen: ?Anastasia Vann ? Specimen: ?RN ADVICE ThinPrep Vial Screening, Cervical ? 01/12/2022 9:19 AM [facility] [employer] LABORATORY-C ENTRAL LABORATORY INTERPRETATION/ RESULT NEGATIVE FOR INTRAEPITHELIAL LESION OR MALIGNANCY (NIL) (none) 01/12/2022 9:19 AM [facility] [employer] LABORATORY-C ENTRAL LABORATORY IMEN ADEQUACY Satisfactory for evaluation Endocervical component present 01/12/2022 9:19 AM [facility] [employer] LABORATORY-C ENTRAL LABORATORY HPV REQUEST HPV if ASCUS 01/12/2022 9:19 AM [facility] [employer] LABORATORY-C ENTRAL LABORATORY Date of LMP 12/21/2021 01/12/2022 9:19 AM BONDERITE OPERATOR [facility] ENTRAL LABORATORY Last Pap Date 5 years ago 01/12/2022 9:19 AM BONDERITE OPERATOR [facility] ENTRAL LABORATORY Last Pap Result NIL 9:19 AM BONDERITE OPERATOR [facility] Abnormal Pap or [place] Bx in last 5 years No 01/12/2022 9:19 AM BONDERITE OPERATOR [facility] ENTRAL LABORATORY Menstrual Status Regular Periods 01/12/2022 9:19 AM BONDERITE OPERATOR [facility] ENTRAL LABORATORY [place] Bx Done Today No 01/12/2022 9:19 AM BONDERITE OPERATOR [facility]TRKY LABORATORY Additional Information None given 01/12/2022 9:19 AM BONDERITE OPERATOR [facility] ENTRAL LABORATORY Comment: Cytology is screened at [facility] Laboratory - [address], [place] [address] and [facility] - [address], [place] [address] [address] [facility] - [address] [place] [address] Interpreted at [facility] - [address], [place] [address] Automated Review Successful 01/12/2022 9:19 AM BONDERITE OPERATOR [facility] ENTRKY LABORATORY Comment:Specimen processed s uccessfully by automated gis instructor device, ThinPrep Imaging System, [employer] Note The pap test is a screening technique, not a diagnostic procedure. It is used primarily to screen for squamous cancers and precursor lesions. Published studies have shown that it is subject to both false negative and false positive results. The pap test should not be used as the sole means to diagnose or exclude pre-malignant and malignant lesions. 01/12/2022 9:19 AM BONDERITE OPERATOR [facility] [employer] [facility] ENTRKY LABORATORY Other (Cervical) Non-Blood / Unknown 01/03/2022 11:52 AM BONDERITE OPERATOR 01/03/2022 12:27 PM BONDERITE OPERATOR Jana Ragsdale DO PATHOLOGY/CYTOLOGY [facility] LABORATORY [address] [place] [address], from Last 3 Months or Most Recently Relevant to Health Maintenance Care Teams Bag Bleacher Relationship Specialty Start Date End Date Pcp, No . PCP - General 01/03/22
== END 2024-08-18 16:11 | disposition home or self-care (01) ==
LOC: NFLDREF 08-20 11:28
PROVIDERS: Visit Provider Advanced Practice Midwife
DX: Z34.91 Encounter for supervision of normal pregnancy, unspecified, first trimester (principal)
CPT/HCPCS: 84702

== ENCOUNTER 2024-08-20 10:01 | Outpatient (CLI) | payer BC, SELFPAY ==
--- OUTSIDE RECORDS SUMMARY | 2024-08-20 10:07 | XMS_ITS | Clinical Summary ---
Author Organization [employer] [facility] Address [place], [place] [address] Care Team Providers Care Fruit Picker Name Role Phone Pcp, No Primary Care [...] Comments Blood Pressure 142/80 01/03/2022 12:04 PM INDUSTRIAL EQUIPMENT WIRER ma nual Pulse 62 01/03/2022 11:16 AM INDUSTRIAL EQUIPMENT WIRER Temperature - - Respiratory Rate - - Oxygen Saturation 100% 01/03/2022 11:16 AM INDUSTRIAL EQUIPMENT WIRER Inhaled Oxygen Concentration - - Weight 58.1 kg (128 lb) 01/03/2022 11:16 AM INDUSTRIAL EQUIPMENT WIRER Height 166.5 cm (5' 5.55) 01/03/2022 11:[address] Body Mass Index 20.94 01/03/2022 11:16 AM INDUSTRIAL EQUIPMENT WIRER Plan of Treatment Health Maintenance Due Date [...] Procedure Name Priority Date/Time Associated Diagnosis Comments CONSTRUCTION TRENCH DIGGER THIN PREP PAP SCREEN IMAGED Routine 01/03/2022 11:52 AM INDUSTRIAL EQUIPMENT WIRER Cervical cancer screening from Last 3 Months or Most Recently Relevant to Health Maintenance Results * CONSTRUCTION TRENCH DIGGER THIN PREP PAP SCREEN IMAGED (01/03/2022 11:52 AM INDUSTRIAL EQUIPMENT WIRER) Case Report Gynecologic Cytology Report ? Case: [id number] ? Authorizing Provider: ??Jana Ragsdale DO ?Collected: ? 01/03/2022 1152 ? Ordering Location: ? [facility] ?? Received: ?01/03/2022 1227 ? Clinic ? First Screen: ?Anastasia Vann ? Specimen: ?CONSTRUCTION TRENCH DIGGER ThinPrep Vial Screening, Cervical ? 01/12/2022 9:19 AM [facility] LABORATORY-C ENTRAL LABORATORY INTERPRETATION/ RESULT NEGATIVE FOR INTRAEPITHELIAL LESION OR MALIGNANCY (NIL) (none) 01/12/2022 9:19 AM [facility] LABORATORY-C ENTRAL LABORATORY IMEN ADEQUACY Satisfactory for evaluation Endocervical component present 01/12/2022 9:19 AM [facility] LABORATORY-C ENTRAL LABORATORY HPV REQUEST HPV if ASCUS 01/12/2022 9:19 AM [facility] LABORATORY-C ENTRAL LABORATORY Date of LMP 12/21/2021 01/12/2022 9:19 AM INDUSTRIAL EQUIPMENT WIRER [facility] ENTRAL LABORATORY Last Pap Date 5 years ago 01/12/2022 9:19 AM INDUSTRIAL EQUIPMENT WIRER [facility] ENTRAL LABORATORY Last Pap Result NIL 9:19 AM INDUSTRIAL EQUIPMENT WIRER [facility] Abnormal Pap or [place] Bx in last 5 years No 01/12/2022 9:19 AM INDUSTRIAL EQUIPMENT WIRER [facility] ENTRAL LABORATORY Menstrual Status Regular Periods 01/12/2022 9:19 AM INDUSTRIAL EQUIPMENT WIRER [facility] ENTRAL LABORATORY [place] Bx Done Today No 01/12/2022 9:19 AM INDUSTRIAL EQUIPMENT WIRER [facility] ENTRMT LABORATORY Additional Information None given 01/12/2022 9:19 AM INDUSTRIAL EQUIPMENT WIRER [facility] ENTRAL LABORATORY Comment: Cytology is screened at [facility] - [address], [place] [address] and [facility] - [address], [place] [address] and [facility] - [address] [place] [address] Interpreted at [facility] - [address], [place] [address] Automated Review Successful 01/12/2022 9:19 AM INDUSTRIAL EQUIPMENT WIRER [facility] ENTRMT LABORATORY Comment:Specimen processed s uccessfully by automated forming press operator device, ThinPrep Imaging System, [employer] Note The pap test is a screening technique, not a diagnostic procedure. It is used primarily to screen for squamous cancers and precursor lesions. Published studies have shown that it is subject to both false negative and false positive results. The pap test should not be used as the sole means to diagnose or exclude pre-malignant and malignant lesions. 01/12/2022 9:19 AM INDUSTRIAL EQUIPMENT WIRER [facility] [employer] [facility] ENTRMT LABORATORY Other (Cervical) Non-Blood / Unknown 01/03/2022 11:52 AM INDUSTRIAL EQUIPMENT WIRER 01/03/2022 12:27 PM INDUSTRIAL EQUIPMENT WIRER Jana Ragsdale DO PATHOLOGY/CYTOLOGY [facility] LABORATORY [address] [place] [address], from Last 3 Months or Most Recently Relevant to Health Maintenance Care Teams Fruit Picker Relationship Specialty Start Date End Date Pcp, No . PCP - General 01/03/22
--- NOTE | 2024-08-20 10:15 | CRLHL7_ITS ---
For Patients: As a result of the Century Cures Act, medical imaging exams and procedure reports are released immediately into your electronic medical record. You may view this report before your referring provider. If you have questions, please contact your health care provider. INDICATION: Evaluate anatomy. COMPARISON: none TECHNIQUE: Real time ernst scale imaging of the fetus was performed as well as color Doppler analysis of the umbilical vessels. FINDINGS: Sonographic imaging demonstrates a single living intrauterine gestation. Fetus demonstrates a regular cardiac rate of 150 beats per minute. Fetus has a vertex position. The placenta lies anteriorly. Placental edge located 4.7 cm from the internal cervical os. Prominent placental Dacosta noted adjacent to the cord insertion measuring 5.9 x 1.3 x 3.2 cm. Amniotic fluid volume appears normal. Single deepest vertical pocket: 4.6 cm. The cervix is closed and measures 4.0 cm in length. The composite ultrasound gestational age is calculated at 20 weeks 0 days with an estimated sonographic due date of 01/07/2025. The estimated weight is 341 grams. The following biometric measurements were obtained: Biparietal diameter: 4.3 cm/19 weeks 0 days Head circumference: 17.0 cm/19 weeks 4 days Abdominal circumference: 14.8 cm/20 weeks 0 days Femur length: 3.4 cm/20 weeks 5 days The HC/AC ratio measures: 1.15 range (1.08-) On anatomic survey, there is a normal appearance of the cerebral ventricles, cavum septi pellucidi, cisterna magna and cerebellum. The nose and lips appear normal. Incomplete visualization of the profile. The cervical, thoracic and lumbar spine are well visualized and appear normal. Incomplete visualization of the four-chamber heart, LVOT and RVOT. The diaphragm and stomach appear normal. The kidneys and bladder also appear normal. There is a normal three-vessel cord and cord insertion site. The four extremities appear normal. IMPRESSION: Prominent placental Dacosta adjacent to the cord insertion measuring 5.9 x 1.3 x 3.2 cm. Incomplete visualization of the profile, four-chamber heart, LVOT and RVOT. Remainder of the anatomic survey normal. Short-term follow-up recommended. Sonographic gestational age 20 weeks 0 days and a sonographic due date of 01/07/2025. Dictated by Hemanth Alvarez MD @ 08/20/2024 12:30:17 PM (Electronically Signed)
== END 2024-08-20 10:02 | disposition home or self-care (01) ==
LOC: US 10:02
PROVIDERS: Visit Provider Advanced Practice Midwife
DX: Z34.92 Encounter for supervision of normal pregnancy, unspecified, second trimester (principal); Z3A.20 20 weeks gestation of pregnancy
CPT/HCPCS: 76805; 76817; 86592; 86703; 86704; 86706; 86762; 86787; 86803; 86850; 87086; 87340

== ENCOUNTER 2024-09-17 09:21 | Outpatient (CLI) | payer BC, SELFPAY ==
--- NOTE | 2024-09-17 09:15 | CRLHL7_ITS ---
For Patients: As a result of the Century Cures Act, medical imaging exams and procedure reports are released immediately into your electronic medical record. You may view this report before your referring provider. If you have questions, please contact your health care provider. OB ULTRASOUND PRABHAKAR by LMP: 01/05/2025. GA: 24 w, 2 d. INDICATION: Limited cardiac views and profile. FINDINGS: Single. position: Vertex. Cervix: Visualized. Measurement: 3.5 cm. Placenta: Technique: Transabdominal. Placenta Position: Anterior. Amniotic Fluid: 3.3 cm SDP (greater than/equal to: 2- less than 8 cm). Dopplers: Heart Rate: 124 bpm. COMMENT: Small hypoechoic area in the placenta measuring 6 x 1 x 3.9 cm, probably reflects a placental tucker. Four chamber heart is visualized and within normal limits. Left ventricular outflow tract is visualized and within normal limits. profile is within normal limits. IMPRESSION: Single live intrauterine gestation. Four chamber flow, outflow tracts, and profile are within normal limits. Marina Li M.D. Diagnostic/Breast Radiologist [email or web address] WILLIAM/ramon navarro/Dictated by: Marina Li MD @ 09/18/2024 4:52:00 AM (Electronically Signed)
--- OUTSIDE RECORDS SUMMARY | 2024-09-17 09:23 | XMS_ITS | Clinical Summary ---
Author Organization [employer] [facility] Address [place], [place] [address] Care Team Providers Care Immigration Judge Name Role Phone Pcp, No Primary Care [...] Comments Blood Pressure 142/80 01/03/2022 12:04 PM STUDIO OPERATION ENGINEER ma nual Pulse 62 01/03/2022 11:16 AM STUDIO OPERATION ENGINEER Temperature - - Respiratory Rate - - Oxygen Saturation 100% 01/03/2022 11:16 AM STUDIO OPERATION ENGINEER Inhaled Oxygen Concentration - - Weight 58.1 kg (128 lb) 01/03/2022 11:16 AM STUDIO OPERATION ENGINEER Height 166.5 cm (5' 5.55) 01/03/2022 11:[address] Body Mass Index 20.94 01/03/2022 11:16 AM STUDIO OPERATION ENGINEER Plan of Treatment Health Maintenance Due Date [...] Procedure Name Priority Date/Time Associated Diagnosis Comments SHOT HOLE DRILLER THIN PREP PAP SCREEN IMAGED Routine 01/03/2022 11:52 AM STUDIO OPERATION ENGINEER Cervical cancer screening from Last 3 Months or Most Recently Relevant to Health Maintenance Results * SHOT HOLE DRILLER THIN PREP PAP SCREEN IMAGED (01/03/2022 11:52 AM STUDIO OPERATION ENGINEER) Case Report Gynecologic Cytology Report ? Case: [id number] ? Authorizing Provider: ??Jaan Ragsdale DO ?Collected: ? 01/03/2022 1152 ? Ordering Location: ? [facility] ?? Received: ?01/03/2022 1227 ? Clinic ? First Screen: ?Anastasia Vann ? Specimen: ?SHOT HOLE DRILLER ThinPrep Vial Screening, Cervical ? 01/12/2022 9:19 AM [email or web address] LABORATORY-C ENTRAL LABORATORY INTERPRETATION/ RESULT NEGATIVE FOR INTRAEPITHELIAL LESION OR MALIGNANCY (NIL) (none) 01/12/2022 9:19 AM [facility] [email or web address] LABORATORY-C ENTRAL LABORATORY IMEN ADEQUACY Satisfactory for evaluation Endocervical component present 01/12/2022 9:19 AM [facility] [[email or web address] LABORATORY-C ENTRAL LABORATORY HPV REQUEST HPV if ASCUS 01/12/2022 9:19 AM [facility] [[email or web address] LABORATORY-C ENTRAL LABORATORY Date of LMP 12/21/2021 01/12/2022 9:19 AM STUDIO OPERATION ENGINEER [facility] ENTRAL LABORATORY Last Pap Date 5 years ago 01/12/2022 9:19 AM STUDIO OPERATION ENGINEER [facility] ENTRAL LABORATORY Last Pap Result NIL 9:19 AM STUDIO OPERATION ENGINEER [facility] Abnormal Pap or [place] Bx in last 5 years No 01/12/2022 9:19 AM STUDIO OPERATION ENGINEER [facility] ENTRAL LABORATORY Menstrual Status Regular Periods 01/12/2022 9:19 AM STUDIO OPERATION ENGINEER [facility] ENTRAL LABORATORY [place] Bx Done Today No 01/12/2022 9:19 AM STUDIO OPERATION ENGINEER [facility] ENTRND LABORATORY Additional Information None given 01/12/2022 9:19 AM STUDIO OPERATION ENGINEER [facility] ENTRAL LABORATORY Comment: Cytology is screened at [facility] - [address], [place] [address] and [facility] - [address], [place] [address] and [facility] - [address] [place] [address] Interpreted at [facility] - [address], [place] [address] Automated Review Successful 01/12/2022 9:19 AM STUDIO OPERATION ENGINEER [facility] ENTRND LABORATORY Comment:Specimen processed s uccessfully by automated program trainer device, ThinPrep Imaging System, [employer] Note The pap test is a screening technique, not a diagnostic procedure. It is used primarily to screen for squamous cancers and precursor lesions. Published studies have shown that it is subject to both false negative and false positive results. The pap test should not be used as the sole means to diagnose or exclude pre-malignant and malignant lesions. 01/12/2022 9:19 AM STUDIO OPERATION ENGINEER [facility] Before the Call [facility] ENTRND LABORATORY Other (Cervical) Non-Blood / Unknown 01/03/2022 11:52 AM STUDIO OPERATION ENGINEER 01/03/2022 12:27 PM STUDIO OPERATION ENGINEER Jana Ragsdale DO PATHOLOGY/CYTOLOGY [facility] LABORATORY [address] [place] [address], from Last 3 Months or Most Recently Relevant to Health Maintenance Care Teams Immigration Judge Relationship Specialty Start Date End Date Pcp, No . PCP - General 01/03/22
== END 2024-09-17 09:22 | disposition home or self-care (01) ==
LOC: US 09:21
PROVIDERS: Visit Provider Advanced Practice Midwife
DX: O35.BXX0 Maternal care for other (suspected) fetal abnormality and damage, fetal cardiac anomalies, not applicable or unspecified (principal); Z3A.24 24 weeks gestation of pregnancy
CPT/HCPCS: 76816

== ENCOUNTER 2024-10-01 08:24 | Outpatient (CLI) | payer BC, SELFPAY ==
--- OUTSIDE RECORDS SUMMARY | 2024-10-04 20:42 | XMS_ITS | Clinical Summary ---
Author Organization [employer] [facility] Address [place], [place] [address] Care Team Providers Care Acute Care Registered Nurse Name Role Phone Pcp, No Primary Care [...] Comments Blood Pressure 142/80 01/03/2022 12:04 PM TICKER MAINTAINER ma nual Pulse 62 01/03/2022 11:16 AM TICKER MAINTAINER Temperature - - Respiratory Rate - - Oxygen Saturation 100% 01/03/2022 11:16 AM TICKER MAINTAINER Inhaled Oxygen Concentration - - Weight 58.1 kg (128 lb) 01/03/2022 11:16 AM TICKER MAINTAINER Height 166.5 cm (5' 5.55) 01/03/2022 11:[address] Body Mass Index 20.94 01/03/2022 11:16 AM TICKER MAINTAINER Plan of Treatment Health Maintenance Due Date [...] Procedure Name Priority Date/Time Associated Diagnosis Comments COAT CHECKER THIN PREP PAP SCREEN IMAGED Routine 01/03/2022 11:52 AM TICKER MAINTAINER Cervical cancer screening from Last 3 Months or Most Recently Relevant to Health Maintenance Results * COAT CHECKER THIN PREP PAP SCREEN IMAGED (01/03/2022 11:52 AM TICKER MAINTAINER) Case Report Gynecologic Cytology Report ? Case: [id number] ? Authorizing Provider: ??Jana Ragsdale DO ?Collected: ? 01/03/2022 1152 ? Ordering Location: ? [facility] ?? Received: ?01/03/2022 1227 ? Clinic ? First Screen: ?Anastasia Vann ? Specimen: ?COAT CHECKER ThinPrep Vial Screening, Cervical ? 01/12/2022 9:19 AM [facility] LABORATORY-C ENTRAL LABORATORY INTERPRETATION/ RESULT NEGATIVE FOR INTRAEPITHELIAL LESION OR MALIGNANCY (NIL) (none) 01/12/2022 9:19 AM [facility] LABORATORY-C ENTRAL LABORATORY IMEN ADEQUACY Satisfactory for evaluation Endocervical component present 01/12/2022 9:19 AM [facility] LABORATORY-C ENTRAL LABORATORY HPV REQUEST HPV if ASCUS 01/12/2022 9:19 AM [facility] LABORATORY-C ENTRAL LABORATORY Date of LMP 12/21/2021 01/12/2022 9:19 AM TICKER MAINTAINER [facility] ENTRAL LABORATORY Last Pap Date 5 years ago 01/12/2022 9:19 AM TICKER MAINTAINER [facility] ENTRAL LABORATORY Last Pap Result NIL 9:19 AM TICKER MAINTAINER [facility] Abnormal Pap or [place] Bx in last 5 years No 01/12/2022 9:19 AM TICKER MAINTAINER [facility] ENTRAL LABORATORY Menstrual Status Regular Periods 01/12/2022 9:19 AM TICKER MAINTAINER [facility] ENTRAL LABORATORY [place] Bx Done Today No 01/12/2022 9:19 AM TICKER MAINTAINER [facility] ENTRUT LABORATORY Additional Information None given 01/12/2022 9:19 AM TICKER MAINTAINER [facility] ENTRAL LABORATORY Comment: Cytology is screened at [facility] Laboratory - [address], [place] [address] and [facility] Laboratory - [address], [place] [address] and [facility] Laboratory - [address] [place] [address] Interpreted at [facility] - [address], [place] [address] Automated Review Successful 01/12/2022 9:19 AM TICKER MAINTAINER [facility] ENTRUT LABORATORY Comment:Specimen processed s uccessfully by automated cyber security specialist device, ThinPrep Imaging System, [employer] Note The pap test is a screening technique, not a diagnostic procedure. It is used primarily to screen for squamous cancers and precursor lesions. Published studies have shown that it is subject to both false negative and false positive results. The pap test should not be used as the sole means to diagnose or exclude pre-malignant and malignant lesions. 01/12/2022 9:19 AM TICKER MAINTAINER [facility] [employer] [facility] ENTRUT LABORATORY Other (Cervical) Non-Blood / Unknown 01/03/2022 11:52 AM TICKER MAINTAINER 01/03/2022 12:27 PM TICKER MAINTAINER Jana Ragsdale DO PATHOLOGY/CYTOLOGY [facility] LABORATORY [address] [place] [address], from Last 3 Months or Most Recently Relevant to Health Maintenance Care Teams Acute Care Registered Nurse Relationship Specialty Start Date End Date Pcp, No . PCP - General 01/03/22
== END 2024-10-01 08:25 | disposition home or self-care (01) ==
LOC: NFLDREF 10-04 20:41
PROVIDERS: Visit Provider Advanced Practice Midwife
DX: O10.919 Unspecified pre-existing hypertension complicating pregnancy, unspecified trimester (principal)
CPT/HCPCS: 82570; 84156

== ENCOUNTER 2024-10-13 09:15 | Outpatient (CLI) | payer BC, SELFPAY ==
--- OUTSIDE RECORDS SUMMARY | 2024-10-13 14:21 | XMS_ITS | Clinical Summary ---
Author Organization [employer] [facility] [employer] Address [place], [place] [address] Care Team Providers Care Drill Operator Automatic Name Role Phone Pcp, No Primary Care [...] Comments Blood Pressure 142/80 01/03/2022 12:04 PM OFFICE ADMINISTRATION ma nual Pulse 62 01/03/2022 11:16 AM OFFICE ADMINISTRATION Temperature - - Respiratory Rate - - Oxygen Saturation 100% 01/03/2022 11:16 AM OFFICE ADMINISTRATION Inhaled Oxygen Concentration - - Weight 58.1 kg (128 lb) 01/03/2022 11:16 AM OFFICE ADMINISTRATION Height 166.5 cm (5' 5.55) 01/03/2022 11:[address] Body Mass Index 20.94 01/03/2022 11:16 AM OFFICE ADMINISTRATION Plan of Treatment Health Maintenance Due Date Last Done Comments Tdap 2004 HIV for age 15-65 2008 Hepatitis C screening for ag e 18-79 2011 Tetanus booster 2013 BMI (ht and wt on same day) for age 18+ 01/03/2023 01/03/2022 Depression screening for age 12+ 01/03/2023 01/03/20 COVID-19 vaccine series ( season) 2024 Influenza for age 9-49 07/20/2024 Pap test for age 21-65 01/03/2025 01/03/2022 Pneumococcal series for age 6-64 Aged Out No longer eligible based on patient's age to complete this topic Procedures Procedure Name Priority Date/Time Associated Diagnosis Comments CONTROL CLERK AUDITING THIN PREP PAP SCREEN IMAGED Routine 01/03/2022 11:52 AM OFFICE ADMINISTRATION Cervical cancer screening from Last 3 Months or Most Recently Relevant to Health Maintenance Results * CONTROL CLERK AUDITING THIN PREP PAP SCREEN IMAGED (01/03/2022 11:52 AM OFFICE ADMINISTRATION) Case Report Gynecologic Cytology Report Case: [id number] Authorizing Provider: Jana Ragsdale DO Collected: 01/03/2022 1152 Ordering Location: [facility] Received: 01/03/2022 1227 Clinic First Screen: Anastasia Vann Specimen: CONTROL CLERK AUDITING ThinPrep Vial Screening, Cervical 01/12/2022 9:19 AM OFFICE ADMINISTRATION [facility] INTERPRETATION/ RESULT NEGATIVE FOR INTRAEPITHELIAL LESION OR MALIGNANCY (NIL) (none) 01/12/2022 9:19 AM OFFICE ADMINISTRATION [facility] [employer] [facility]-C ENTRAL LABORATORY IMEN ADEQUACY Satisfactory for evaluation Endocervical component present 01/12/2022 9:19 AM OFFICE ADMINISTRATION [facility] HPV REQUEST HPV if ASCUS 01/12/2022 9:19 AM OFFICE ADMINISTRATION [facility] EN[facility]AL [facility]AT[facility] Date of LMP 12/21/2021 01/12/2022 9:19 AM OFFICE ADMINISTRATION [facility] [employer] [facility]-C ENTRAL LABORATORY Last Pap Date 5 years ago 01/12/2022 9:19 AM OFFICE ADMINISTRATION [facility] [employer] [facility]-C ENTRAL LABORATORY Last Pap Result NIL 9:19 AM OFFICE ADMINISTRATION [facility] [employer] ENTRAL LABORATORY Abnormal Pap or [place] Bx in last 5 years No 01/12/2022 9:19 AM OFFICE ADMINISTRATION [facility] [employer] [facility]-C ENTRAL LABORATORY Menstrual Status Regular Periods 01/12/2022 9:19 AM OFFICE ADMINISTRATION [facility] [employer] [facility] [place] Bx Done Today No 01/12/2022 9:19 AM OFFICE ADMINISTRATION [facility] [employer] [facility] Additional Information None given 01/12/2022 9:19 AM OFFICE ADMINISTRATION [facility] [employer] [facility] Comment: Cytology is screened at [facility] [employer] [facility] - [address], [place] [address] and [facility] - [address], [place] [address] and [facility] - [address] [place] [address] Interpreted at [facility] [employer] [facility] - [address], [place] [address] Automated Review Successful 01/12/2022 9:19 AM OFFICE ADMINISTRATION [facility] [employer] [facility] ENTRAL LABORATORY Comment:Specimen processed s uccessfully by automated hairspring ii inspector device, ThinPrep Imaging System, [employer] Note The pap test is a screening technique, not a diagnostic procedure. It is used primarily to screen for squamous cancers and precursor lesions. Published studies have shown that it is subject to both false negative and false positive results. The pap test should not be used as the sole means to diagnose or exclude pre-malignant and malignant lesions. 01/12/2022 9:19 AM OFFICE ADMINISTRATION [employer] LABORATORY-C ENTRAL LABORATORY Other (Cervical) Non-Blood / Unknown 01/03/2022 11:52 AM OFFICE ADMINISTRATION 01/03/2022 12:27 PM OFFICE ADMINISTRATION Jana Ragsdale DO PATHOLOGY/CYTOLOGY [employer] LABORATORY-CENTRAL LABORATORY [address] [place] [address], from Last 3 Months or Most Recently Relevant to Health Maintenance Care Teams Drill Operator Automatic Relationship Specialty Start Date End Date Pcp, No . PCP - General 01/03/22
== END 2024-10-13 09:16 | disposition home or self-care (01) ==
LOC: NFLDREF 14:19
PROVIDERS: Visit Provider Midwife
DX: O10.913 Unspecified pre-existing hypertension complicating pregnancy, third trimester (principal); Z3A.28 28 weeks gestation of pregnancy
CPT/HCPCS: 82565; 82570; 84156; 84450; 84460; 84520; 86592

== ENCOUNTER 2024-12-10 09:35 | Outpatient (CLI) | payer BC, SELFPAY ==
[2024-12-11 12:59] LABS: Strep B DNA Probe Negative (Negative)
[2024-12-11 13:30] LABS: Strep B Susceptibility Needed? No
== END 2024-12-10 09:36 | disposition home or self-care (01) ==
LOC: LKVREF 10:28
PROVIDERS: Visit Provider Advanced Practice Midwife
DX: Z34.93 Encounter for supervision of normal pregnancy, unspecified, third trimester (principal); Z3A.36 36 weeks gestation of pregnancy
CPT/HCPCS: 87081; 87653

== ENCOUNTER 2024-12-26 10:35 | Outpatient (CLI) | payer BC, SELFPAY ==
--- NOTE | 2024-12-26 10:45 | CRLHL7_ITS ---
For Patients: As a result of the Cures Act, medical imaging exams and procedure reports are released immediately into your electronic medical record. You may view this report before your referring provider. If you have questions, please contact your health care provider. OB ULTRASOUND PRABHAKAR by LMP: 01/05/2025. GA: 38 w, 4 d. Single. Comparison: 09/17/2024, 08/20/2024. INDICATION: Small for dates. TECHNIQUE: Real time grayscale imaging of the fetus was performed. Transabdominal. CERVIX: Not visualized. POSITIONING: Vertex. AMNIOTIC FLUID: 6.7 cm. SDP (N: greater than 2 x 1 cm) PLACENTA: Technique: Transabdominal. PLACENTA POSITION: Anterior. DOPPLER: heart rate: 128 bpm. BIOMETRY: BPD: 9.0 cm. 36 w, 2 d, 19.0 percent. HC: 33.7 cm. 38 w, 5 d, 37.1 percent. AC: 33.3 cm. 37 w, 2 d, 31.7 percent. FL: 7.4 cm. 39 w, 5 d, 80.2 percent. FL/AC ratio: 23.28 percent. HC/AC ratio: 1.01. EFW: 3331 g. Weight: 7 lbs, 5 oz. age by this US: 38 w, 0 d. PRABHAKAR by this US: 01/09/2025. Percentile by PRABHAKAR: 48.1 percent. IMPRESSION: 1. Sonographic gestational age 38 weeks 0 days and sonographic due date 01/09/2025. Good correlation with dates. Normal interval growth. 2. Estimated weight 48th percentile. Abdominal circumference 32nd percentile. Hemanth Alvarez M.D. Diagnostic Radiologist [email or web address] CATRINA/ramon navarro/Dictated by: Hemanth Alvarez MD @ 12/26/2024 11:28:00 AM (Electronically Signed)
== END 2024-12-26 10:36 | disposition home or self-care (01) ==
LOC: US 10:35
PROVIDERS: Visit Provider Advanced Practice Midwife
DX: O36.5930 Maternal care for other known or suspected poor fetal growth, third trimester, not applicable or unspecified (principal); Z3A.38 38 weeks gestation of pregnancy
CPT/HCPCS: 76816

== ENCOUNTER 2025-01-07 07:37 | Inpatient (IN) | payer BC, SELFPAY ==
[2025-01-07] VITALS (34 sets, daily range): BP systolic 120–168; BP diastolic 66–99; PULSE 76–97; RESP 16; TEMP 36.4–36.9; O2SAT 97; BMI 25.8
--- NOTE | 2025-01-07 08:29 | P.LDBA_ITS ---
Subjective History of Present Illness Time Seen by Provider: 08:30 Date Seen: 01/07/25 Narrative: Patient is being admitted to Labor and Delivery for induction of labor for Chronic Hypertension although she has had normotensive blood pressures throughout her . Initial BP on admission is 134/90. She is a 29 year old at 40.2 weeks gestation. Her full history and physical was dictated by Kelsea Crisostomo CNM on 12/17/24. Please see this for details. Specific Issues/Plans H&P 12/17/24 by Kelsea Crisostomo CNM 1. Suspected Chronic in previous vs GHTN BP 01/03/22 was 164/101, repeat 142/80 BP between pregnancies has been normal 24hr urine normal 2. Late presentation to care due to suspected miscarriage in early IUD removed 04/07/24, likely conception on 04/14 Pt thought she miscarried in May with heavy bleeding for a few days that slowly resolved followed by a suspected period 2 weeks later 3. anatomy not visible on anatomy US, heart and profile views Follow-up US 09/17/2024 normal follow up 4. Possible placenta tucker at cord insertion site 5.9 x 1.3 x 3.2 cm 5. Fundal heights unchanged over 3 visits 12/26: EFW 48%ile Hemanth Alvarez M.D. Tdap: 10/29/2024 RSV: Flu: 09/25/2024 Covid: Needs pap OB - Problem Based A/P Additional Plan (1) Chronic hypertension complicating or reason for care during : Problem details: VS GHTN?, no abnormal BP since last Status: Acute (2) Encounter for induction of labor: Status: Acute (3) 40 weeks gestation of : Status: Acute Plan Assessment:?? at 40.2 weeks gestation?? GBS negative?? Labor type: Induced, Early labor? Category 1 FHR pattern.? complicated by: CHTN with normotensive BP's through this , Late care due to suspected miscarriage in early Plan:?? * ?Admit to L & D? * IV access: SL * Monitoring per policy: continuous ? * Candidate for analgesia of choice.? Planning epidural for pain management * Reviewed risks and benefits of IOL with AROM, Cook balloon, Pitocin vs Cytotec/Cervidil. Pt prefers AROM with IV Pitocin to follow if needed. * Monitor blood pressures. Consider labs if elevated.? * Patient encouraged to reposition and ambulate to promote physiologic labor and . * Anticipate ? Delivery/Labor/Induction Plan Plan: induction Induction method: AROM OB Exam Physical Exam Vital signs: Temp Pulse BP 98 F 94 134/90 H 01/07/25 08:03 01/07/25 08:03 01/07/25 08:03 Narrative: Vitals Reviewed Constitutional:? Alert and oriented x3 HEENT:? Normocephalic, atraumatic Neck:? Supple Lungs:? Clear to auscultation bilaterally Heart:? Regular rate and rhythm, no murmur, rub or gallop Abdomen:? Soft, nontender, and gravid. Vertex by Kenton's, confirmed with cervical exam. Extremities:? No edema or erythema Cervix: 4 cm/60%/-3 station/vertex NST: 135 bpm/moderate variability/+accelerations/-decelerations/mild contractions Detailed Labor and Delivery Exam Patient Gravid: Yes Fetus A Amniotic membrane fluid description: AROM Amniotic membrane fluid description: Clear
[2025-01-07 08:50] LABS: Basophils Absolute Auto 0.03 K/uL (0.00-0.30); Basophils Percent Auto 0.3 % (0.0-3.0); Eosinophils Absolute Auto 0.08 K/uL (0.00-0.50); Eosinophils Percent Auto 0.9 % (0.0-7.0); Hematocrit 36.7 % (33.0-51.0); Hemoglobin* 12.4 gm/dL (12.0-16.0); Immature Granulocytes Abs Auto 0.05 K/uL (0.00-0.30); Immature Granulocytes Pct Auto 0.6 %; Lymphocytes Percent Auto 18.1 % (20-44); Mean Corpuscular HGB Conc 34 gm/dL (32-36); Mean Corpuscular Hemoglobin 32 pg (26-34); Mean Corpuscular Volume 94 fL (80-100); Monocytes Percent Auto 5.6 % (0.0-11.0); Neutrophils Percent Auto 74.5 % (42.0-72.0); Platelet Count* 142 K/uL (140-440); Red Blood Count 3.92 m/uL (4.00-5.20); White Blood Count* 8.86 K/uL (4.50-11.00)
[2025-01-07 09:00] LABS: Slide Review Reflex No
--- NOTE | 2025-01-07 11:45 | PM.OBPNL ---
Subjective Date Seen: 01/07/25 Narrative: ?Jo Ann is coping well with labor pain/contractions. ?Her partner is with her for support. ?She would like to continue with repositioning and relaxation for comfort and pain management.?She reports she has slightly stronger contractions since AROM. Continues to leak clear fluid. Given the option to continue with current plan or add IV Pitocin at this time. She would like to move forward with Pitocin. Objective Exam: VSS, afebrile General Appearance:? Calm, cooperative. ?No acute distress. ? Psychiatric Exam: Alert and oriented, appropriate affect Abdomen: Gravid Ctx: ?Q 6-8 min apart. ?Mild ? ? FHTs: ?Baseline: 130. ? ? Variability: moderate. ?Accels: +. ? ?Decels: ?-. SVE: deferred Membranes: ?AROM clear 3 hours Vital Signs: Last Vital Signs Temp 98.1 F 01/07/25 11:13 Pulse 86 01/07/25 11:13 BP 129/81 01/07/25 11:13 Plan Plan: Assessment:?? at 40.2 weeks gestation?? GBS neg Patient is coping well with challenges of labor.?? Labor type: Induced, Early labor? Category 1 FHR pattern.? complicated by: CHTN with normotensive BP's through this , Late care due to suspected miscarriage in early Plan:?? Start IV Pitocin per protocol Continue with routine intrapartum cares as ordered.?? Patient encouraged to move and change positions to promote physiologic labor and .?? Nonpharmacologic comfort measures per patient preference. Candidate for analgesia of choice if desired. BP's normotensive at this time, continue to monitor per routine. Anticipate progress to NVD. ?
[2025-01-07] MEDS: OXYTOCIN 30 unit/500 ML in NS 30 UNIT/500 ML BAG IVPB (12:07)
[2025-01-07] MEDS: LACTATED RINGERS 1000 ML 1,000 ML 125 ML IV (12:07)
--- NOTE | 2025-01-07 16:16 | P.OBPN_ITS ---
Subjective Date Seen: 01/07/25 Narrative: ?Jo Ann is coping well with labor pain/contractions. ?She reports con tractions are more regular and slightly stronger. She does not feel she needs anything for pain at this time. Requesting cervical exam to check progress at this time. ? Objective Exam: VSS, afebrile General Appearance:? Calm, cooperative. ?No acute distress. ? Psychiatric Exam: Alert and oriented, appropriate affect Abdomen: Gravid Ctx: ?Q 2-3 min apart. ?Mild ? ? FHTs: ?Baseline: 135. ? ? Variability: moderate. ?Accels: +. ? ?Decels: ?-. SVE: 5/80/-3 Membranes: ?AROM X 8 hours Vital Signs: Last Vital Signs Temp 98.5 F 01/07/25 15:13 Pulse 81 01/07/25 16:02 BP 130/77 01/07/25 16:02 Plan Plan: Assessment:?? at 40.2 weeks gestation?? GBS neg Patient is coping well with challenges of labor.?? Labor type: Induced, Early labor? Category 1 FHR pattern.? complicated by: CHTN with normotensive BP's through this , Late care due to suspected miscarriage in early Plan:?? Continue IV Pitocin per protocol Continue with routine intrapartum cares as ordered.?? Patient encouraged to move and change positions to promote physiologic labor and .?? Nonpharmacologic comfort measures per patient preference. Candidate for analgesia of choice if desired. Anticipate progress to NVD. ?
[2025-01-07] MEDS: LACTATED RINGERS 1000 ML 1,000 ML 925 ML IV (19:09)
--- NOTE | 2025-01-07 19:59 | W.PM.OBVAGDE ---
OB Procedure Vag Delivery Mother Details Mother Details: The patient is a 29 year-old, 2, Para 2, admitted on 01/07/25 at 40.2 weeks gestation. : 2 Para: 2 Weeks Gestation: 40.2 Admission Date: 01/07/25 Additional Details Amniotic Membrane Status: AROM Amniotic Membrane Rupture Date: 01/07/25 Amniotic Membrane Rupture Time: 08:27 Amniotic Membrane Fluid Description: Clear Analgesia/Anesthesia Type: None Waterbirth: No Pitcoin: Yes Intrapartal Events: Labor Induction Labor Onset: 19:00 Complete: 19:30 Pushin:30 Heart: heart tones during second stage were continuously monitored, reassuring with moderate variability. Delivery Details Delivery Date: 01/07/25 Delivery Time: 19:35 Route of delivery: Infant Gender: Female Infant Viability: Alive; Heart Rate Present Position at Delivery: OA Delivery Details: 29?y.o?at 40.2 weeks.? Jo Ann was admitted for induction for history of chronic hypertension, although she had normal blood pressures throughout . Induced with AROM then IV Pitocin when labor was not progressing 4 hours after AROM. She was up moving throughout the day doing the labor warm up series of movements. Then reported feeling the baby move down into her pelvis more and requested an epidural. Not long after requesting epidural she began to feel like pushing and was found to be complete. ? ? She became complete at 1930.??She pushed in low fowlers position effectively.??? She had two severe range blood pressures in the time frame that she reported increased vaginal pressure and delivery which are attributed to her precipitous progression at this time. She has had two blood pressures with diastolics of 90 greater than 4 hours apart so preeclampsia labs were ordered. Will not start Magnesium at this time for the severe range readings as they are likely related to her quick delivery rather than disease process. If any additional severe range blood pressures will initiate Magnesium protocol. Dr. De Leon was informed of this plan. ? Spontaneous vaginal delivery at 1935 of?a viable? female infant.??Delivered in vertex OA position.??Shoulders delivered easily.? Spontaneous cry noted.?? placed on maternal abdomen.??Cord?was clamped and cut after a 5+ minute delay.??Nose and mouth were bulb suctioned.? Shoulder dystocia: no? Nuchal cord: no? Meconium stained?fluid: no? Water : no? ? ? 8 at 1 minute and 9 at 5 minutes.? Weight is pending. ? Placenta delivered spontaneously and?complete?at 1944 with a?3 vessel?cord.?? Bleeding controlled with fundal massage and?pitocin?for AMTSL.? ? Lacerations:? ??1st degree perineal laceration, not bleeding, not repaired. Upper right labial laceration also not bleeding and not repaired, tissues sit together with both tears. ? Bleeding?post delivery?was: minimal. ?The fundus was firm to palpation.? Blood loss: 150?mL.? Blood loss measurement type: QBL? ? ? Sponge,?lap?and needles counts are correct.? Mother and were stable after delivery.? 1 Minute Interval Total Score: 8 5 Minute Interval Total Score: 9 Additional Details Shoulder Dystocia: No Placenta Delivery Time: 19:44 Placental Delivery Description: Spontaneous Procedure Done: Global Blood Loss: 150 Laceration: Perineal - 1st Degree (not bleeding not repaired) Blood Loss Measurement Type: QBL Bakri Used: No Sponge/Need Count Correct: Yes Cord Vessel Description: 3 Vessels Event Summary Status: Mother and infant were stable after delivery. Disposition: floor
[2025-01-07] MEDS: IBUPROFEN 600 MG TABLET PO (20:00)
[2025-01-07 20:12] LABS: Hematocrit 37.8 % (33.0-51.0); Hemoglobin* 12.4 gm/dL (12.0-16.0); Mean Corpuscular HGB Conc 33 gm/dL (32-36); Mean Corpuscular Hemoglobin 31 pg (26-34); Mean Corpuscular Volume 95 fL (80-100); Platelet Count* 133 K/uL (140-440); White Blood Count* 10.69 K/uL (4.50-11.00)
[2025-01-07 20:13] LABS: Slide Review Reflex No
[2025-01-07 20:27] LABS: Alanine Aminotransferase* 12 U/L (4-35); Aspartate Amino Transferase* 19 U/L (12-35); Blood Urea Nitrogen* 13 mg/dL (5-24); Creatinine* 0.6 mg/dL (0.5-1.5); Est. Creatinine Clearance* 127.18; Estimated Glomerular Filt Rate 123 ml/min
[2025-01-07] MEDS: LABETALOL HCL 5 MG/ML inj IVP (20:34)
[2025-01-07] MEDS: MAGNESIUM IV 4 GM/100 ML PIGGYBACK IVPB (20:42)
[2025-01-07] MEDS: LACTATED RINGERS 1000 ML 1,000 ML 75 ML IV (21:25)
[2025-01-07] MEDS: MAGNESIUM Infusion 40 GM/1,000 ML IV.SOLN IVPB (21:29)
[2025-01-07] MEDS: NIFEdipine 30 MG TAB.ER.24 PO (21:31)
[2025-01-08] VITALS (13 sets, daily range): BP systolic 109–135; BP diastolic 67–88; PULSE 75–92; RESP 12–18; TEMP 36.3–36.7; O2SAT 97–100
[2025-01-08 01:32] LABS: Total Protein Urine 31 mg/dL
[2025-01-08 01:34] LABS: Creatinine Urine 29.8 mg/dL; Protein Creatinine Ratio Urine 1.04 (0-0.19)
[2025-01-08] MEDS: IBUPROFEN 600 MG TABLET PO ×3 (02:04→15:37)
[2025-01-08 02:35] LABS: Hemoglobin* 13.1 gm/dL (12.0-16.0); Mean Corpuscular HGB Conc 33 gm/dL (32-36); Mean Corpuscular Hemoglobin 31 pg (26-34); Mean Corpuscular Volume 94 fL (80-100); Platelet Count* 152 K/uL (140-440); Red Blood Count 4.27 m/uL (4.00-5.20); White Blood Count* 15.15 K/uL (4.50-11.00)
[2025-01-08 02:36] LABS: Slide Review Reflex No
[2025-01-08 02:50] LABS: Alanine Aminotransferase* 15 U/L (4-35); Aspartate Amino Transferase* 34 U/L (12-35); Blood Urea Nitrogen* 11 mg/dL (5-24); Creatinine* 0.5 mg/dL (0.5-1.5); Est. Creatinine Clearance* 152.62; Estimated Glomerular Filt Rate 129 ml/min
[2025-01-08 02:52] LABS: Magnesium* 5.3 mg/dL (1.5-2.6)
--- NOTE | 2025-01-08 08:38 | PM.OBPNVD1 ---
OB - PN:Subj Subjective Date Seen: 01/08/25 Patient comments OB post-: pain well controlled, tolerating diet and flatus present infant status: feeding status: exclusively Narrative: Jo Ann is a 29 y.o. who was admitted to L & D for IOL in the setting of CHTN. ?She had an uncomplicated . Right after delivery had persistently severely elevated blood pressures that required IV antihypertensive therapy and was started on IV Magnesium sulfate infusion for seizure prophylaxis. Patient was also started on oral Nifedipine 30mg daily. Denies [employer] irritability symptoms. Labs every 6 hours, have shown normal platelets, kidney and liver function. Blood pressures remained at goal throughout the night.?The patient feels well. ?The pain is well controlled with current medications. ?She has no new complaints. ?She is breast feeding and reports things are going well.?She has remained afebrile.? Has a good appetite, is tolerating a general diet. ?She is voiding without difficulty.? She is passing gas and has not had a bowel movement.? She is ambulating and denies any dizziness.? Has Small amount of rubra lochia. ? OB - PN: Obj Exam Physical Exam: Vital signs: Temp Pulse Resp BP Pulse Ox O2 Del Method 97.6 F 91 16 126/83 100 Room Air 01/08/25 05:28 01/08/25 08:09 01/08/25 05:28 01/08/25 08:09 01/08/25 05:28 01/08/25 05:28 Narrative: GENERAL APPEARANCE:? normal affect, alert, no distress MOOD:? appropriate CHEST:? clear to auscultation HEART:? regular rate and rhythm ABDOMEN:? soft, non-tender the uterine fundus is At Umbilicus, Midline and is appropriate for the stage of recovery. PERINEUM:? mild edema of the perineum, there is a Perineal Laceration,? 1st degree that is healing well. EXTREMITIES:? normal and no edema OB - PN: Obj Data Labs Labs: Laboratory Results - last 24 hr 01/07/25 01/07/25 01/08/25 08:42 20:07 01:30 WBC 8.86 10.69 RBC 3.92 L 4.00 Hgb 12.4 12.4 Hct 36.7 37.8 MCV 94 95 MCH 32 31 MCHC 34 33 RDW Coeff of Frida 14.0 Plt Count 142 133 L Neut % (Auto) 74.5 H Lymph % (Auto) 18.1 L [place] % (Auto) 5.6 Eos % (Auto) 0.9 Baso % (Auto) 0.3 Neut # (Auto) 6.60 Lymph # (Auto) 1.60 [place] # (Auto) 0.50 Eos # (Auto) 0.08 Baso # (Auto) 0.03 Abs Immat Gran (auto) 0.05 Imm/Tot Granulo (auto) 0.6 BUN 13 Creatinine 0.6 Estimated Creat Clear 127.18 Estimated GFR 123 Magnesium AST 19 ALT 12 Urine Creatinine 29.8 Protein/Creatinin Ratio 1.04 H Urine Total Protein 31 Blood Type O Positive Antibody Screen NEGATIVE 01/08/25 02:30 WBC 15.15 H RBC 4.27 Hgb 13.1 Hct 40.0 MCV 94 MCH 31 MCHC 33 RDW Coeff of Frida Plt Count 152 Neut % (Auto) Lymph % (Auto) [place] % (Auto) Eos % (Auto) Baso % (Auto) Neut # (Auto) Lymph # (Auto) [place] # (Auto) Eos # (Auto) Baso # (Auto) Abs Immat Gran (auto) Imm/Tot Granulo (auto) BUN 11 Creatinine 0.5 Estimated Creat Clear 152.62 Estimated GFR 129 Magnesium 5.3 H* AST 34 ALT 15 Urine Creatinine Protein/Creatinin Ratio Urine Total Protein Blood Type Antibody Screen OB - PN: A/P Delivery Assessment and Plan (1) Chronic hypertension complicating or reason for care during : Problem details: VS GHTN?, no abnormal BP since last Status: Acute (2) Encounter for induction of labor: Status: Acute (3) 40 weeks gestation of : Status: Acute Plan day: 1 Plan: routine care Comments: Continue IV infusion of Magnesium sulfate until about 9pm tonight. Close monitoring of V/S, Urinary output, magnesium toxicity checks. Continue with preE labs every 6 hours. Recommend observation period of at least 24 hours after dc of magnesium for continued monitoring of BPs and oral antihypertensive medication titration if needed. Patient in agreement with plan.
[2025-01-08] MEDS: DOCUSATE SODIUM 100 MG CAPSULE PO (08:53)
[2025-01-08 09:12] LABS: Hematocrit 36.4 % (33.0-51.0); Mean Corpuscular HGB Conc 33 gm/dL (32-36); Mean Corpuscular Hemoglobin 31 pg (26-34); Mean Corpuscular Volume 94 fL (80-100); Platelet Count* 149 K/uL (140-440); Red Blood Count 3.89 m/uL (4.00-5.20); White Blood Count* 11.95 K/uL (4.50-11.00)
[2025-01-08 09:15] LABS: Slide Review Reflex No
[2025-01-08 09:29] LABS: Aspartate Amino Transferase* 38 U/L (12-35); Creatinine* 0.6 mg/dL (0.5-1.5); Est. Creatinine Clearance* 127.18; Estimated Glomerular Filt Rate 123 ml/min
[2025-01-08 09:30] LABS: Alanine Aminotransferase* 17 U/L (4-35); Blood Urea Nitrogen* 8 mg/dL (5-24)
[2025-01-08 09:35] LABS: Magnesium* 6.1 mg/dL (1.5-2.6)
[2025-01-08] MEDS: ACETAMINOPHEN 500 MG TABLET 1000 MG PO ×2 (11:05→17:13)
[2025-01-08] MEDS: LACTATED RINGERS 1000 ML 1,000 ML 75 ML IV (11:09)
[2025-01-08 14:24] LABS: Hematocrit 34.5 % (33.0-51.0); Hemoglobin* 11.4 gm/dL (12.0-16.0); Mean Corpuscular HGB Conc 33 gm/dL (32-36); Mean Corpuscular Hemoglobin 31 pg (26-34); Mean Corpuscular Volume 93 fL (80-100); Platelet Count* 154 K/uL (140-440); Red Blood Count 3.71 m/uL (4.00-5.20); White Blood Count* 12.07 K/uL (4.50-11.00)
[2025-01-08 14:25] LABS: Slide Review Reflex No
[2025-01-08 14:38] LABS: Aspartate Amino Transferase* 37 U/L (12-35); Creatinine* 0.6 mg/dL (0.5-1.5); Est. Creatinine Clearance* 127.18; Estimated Glomerular Filt Rate 123 ml/min
[2025-01-08 14:39] LABS: Alanine Aminotransferase* 17 U/L (4-35); Blood Urea Nitrogen* 8 mg/dL (5-24)
[2025-01-08 14:42] LABS: Magnesium* 6.3 mg/dL (1.5-2.6)
[2025-01-08] MEDS: MAGNESIUM Infusion 40 GM/1,000 ML IV.SOLN IVPB (17:26)
[2025-01-08 20:25] LABS: Hematocrit 37.6 % (33.0-51.0); Hemoglobin* 12.1 gm/dL (12.0-16.0); Mean Corpuscular HGB Conc 32 gm/dL (32-36); Mean Corpuscular Hemoglobin 30 pg (26-34); Mean Corpuscular Volume 94 fL (80-100); Platelet Count* 159 K/uL (140-440); White Blood Count* 11.86 K/uL (4.50-11.00)
[2025-01-08 20:39] LABS: Aspartate Amino Transferase* 41 U/L (12-35); Creatinine* 0.7 mg/dL (0.5-1.5); Est. Creatinine Clearance* 109.01; Estimated Glomerular Filt Rate 119 ml/min
[2025-01-08 20:40] LABS: Alanine Aminotransferase* 19 U/L (4-35); Blood Urea Nitrogen* 10 mg/dL (5-24)
[2025-01-08 20:41] LABS: Magnesium* 6.4 mg/dL (1.5-2.6)
[2025-01-08 21:25] LABS: Rapid Plasma Reagin (RPR) Non Reactive (Non Reactive)
[2025-01-08 21:28] LABS: Slide Review Reflex No
[2025-01-08] MEDS: NIFEdipine 30 MG TAB.ER.24 PO (21:45)
[2025-01-09 03:51] VITALS: BP 114/70; PULSE 71; RESP 14
--- NOTE | 2025-01-09 07:57 | PM.OBDSVD1 ---
DS: Providers Provider Time Seen by Provider: 08:20 Date Seen: 01/09/25 Date of admission: 01/07/25 07:37 Primary care physician: Not a Local Provider Admitting Clinician: Jamaal Durbin CNM Attending Physician on discharge: Edel Osorio MD DS: Diagnosis Discharge Diagnosis (1) Severe preeclampsia: Status: Acute (2) (normal spontaneous vaginal delivery): Status: Acute Exam Narrative: Exam Narrative: General: Pleasant, , well groomed woman in no acute distress. Vital signs: Included in her electronic medical record. Chest: Clear to auscultation bilaterally. Heart: Regular rate and rhythm without gallop, rub or murmur. Abdomen: Soft, nontender nondistended. Fundus firm at 1 cm below the umbilicus in the midline. Lochia: Small rubra. Extremities: No pain. Edema: none Const: Vital Signs, click to edit/add: Vital Signs - 24 hr 01/08/25 08:09 01/08/25 08:54 01/08/25 11:01 Temperature 97.5 F L Pulse Rate [Pulse Oximeter] 91 82 87 Respiratory Rate 16 16 Blood Pressure [Le ft Arm] 126/83 110/71 Pulse Oximetry 98 98 Oxygen Delivery Me thod Room Air Room Air 01/08/25 13:10 01/08/25 15:26 01/08/25 17:07 Temperature 97.3 F L 97.7 F Pulse Rate [Pulse Oximeter] 89 86 92 Respiratory Rate 18 16 16 Blood Pressure [Le ft Arm] 119/74 115/77 124/82 Pulse Oximetry 98 97 98 Oxygen Delivery Me thod Room Air Room Air Room Air 01/08/25 20:36 01/08/25 22:00 01/09/25 03:51 Temperature 98.1 F Pulse Rate [Pulse Oximeter] 91 84 71 Respiratory Rate 12 16 14 Blood Pressure [Le ft Arm] 129/83 135/88 114/70 Pulse Oximetry 99 98 Oxygen Delivery Me thod Room Air Room Air OB - DS: Summary Hospital Course Hospital Course: The patient is a 29 year old G 1 P 0 now 1 at 40 weeks gestation that was admitted to the Center on 01/07/25 for chronic hypertension. She had an uncomplicated vaginal delivery. had severe range blood pressures and was placed on magnesium sulfate for 24 hours for seizure prophylaxis. Preeclampsia labs were all normal. She has been off of magnesium for greater than 12 hours. All of her blood pressures have been under 140/90 on nifedipine ER 30 mg daily. She delivered a viable female infant. She is breast feeding. She would like to be discharged home today. I recommended that she follow-up in the clinic on Sunday for blood pressure check. Peripartum Data Infant delivery method: Vaginal Laceration description: Periurethral - 1st Degree complications: other (Severe range blood pressures .) [place] Infant Gender: Female Infant Discharge Plan: Home Time Spent with Patient Time attestation: Total time spent providing and/or coordinating discharge services: Time spent: Less than 30 minutes Discharge Plan Discharge Disposition: Home, Self-Care Date of Admission: 01/07/25 07:37 Attending Provider on Discharge: Edel Osorio Primary Care Provider: Provider,Not a Local Condition: Improved Anticipated Discharge Date/Time: 01/09/25 12:00 Discharge Medications: New docusate sodium 100 mg Capsule 100 mg PO BID Qty: 100 0RF nifedipine 30 mg Tablet Extended Release 24hr 30 mg PO 2100 Qty: 60 0RF ibuprofen 600 mg Tablet 600 mg PO Q6H PRNQty: 30 0RF Continued DHA 200 mg capsule 200 mg PO QDAY ferrous sulfate [Iron (ferrous sulfate)] 325 mg (65 mg iron) tablet 325 mg PO QDAY Discontinued aspirin 81 mg tablet,delayed release (DR/EC) 81 mg PO QDAY Discharge Orders: Discharge Order (Routine); Ordered 01/09/25 Ordered By: Edel Osorio Patient Education: Preeclampsia and Eclampsia After Delivery (GEN) Additional Instructions: For pain: Alternate ibuprofen 600 mg every 3 hours with 2 tablets (1,000mg) of extra-strength acetaminophen/Tylenol. Restrictions for activity: Nothing vaginally for 6 weeks: No intercourse or tampons Off Work or School for a minimum of 6 weeks. Symptoms to report to doctor: -Bleeding that saturates more than one pad per hour ?-Passing clots larger than the size of a golf ball ?-Pain not relieved by prescribed medication ?-Fever above 100.4 degrees Fahrenheit ?-A foul vaginal odor ?-Difficulty in emotions, mood and functions ?-Thoughts of hurting yourself and/or ?-Painful, reddened area in your breast ?-Any drainage, redness or tenderness in your IV/epidural site ?-Severe headache that doesn't improve after taking medications ?-Changes in vision, including temporary loss of vision, blurred vision, and/or light sensitivity ?-Upper abdominal pain (usually under ribs on the right side) ?-Decrease in urination or painful, frequent urinating ?-Chest pain ?-Shortness of breath ?-Tenderness or pain with redness and/swelling in the calf(s) of your leg Follow up appointments: 1. For BP check on Sunday01/12/25 2. Optional 2 week visit: discuss contraceptive options, answer questions regarding care, screen for anxiety and depression. 3. 6 week visit for an annul exam. consultation services are available to all mothers and babies for the first year after delivery.? To make an appointment, please call [phone]. Activity Level: Other Discharge Diet: Regular Follow Up Appointments: [facility] [Outside] Provider,Not a Local [Primary Care Provider] - Forms: MyHealth Info Instructions
[2025-01-09 08:42] VITALS: BP 131/87; PULSE 82; RESP 16; TEMP 36.9; O2SAT 98
[2025-01-09] MEDS: DOCUSATE SODIUM 100 MG CAPSULE PO (08:55)
== END 2025-01-09 11:30 | disposition home or self-care (01) | DRG 560 ==
PROVIDERS: Admitting Provider Advanced Practice Midwife; Visit Provider Advanced Practice Midwife
DX: O11.4 Pre-existing hypertension with pre-eclampsia, complicating childbirth (principal); O10.92 Unspecified pre-existing hypertension complicating childbirth; O70.0 First degree perineal laceration during delivery; Z3A.40 40 weeks gestation of pregnancy; Z37.0 Single live birth
CPT/HCPCS: 36415; 82565; 82570; 83735; 84156; 84450; 84460; 84520; 85025; 85027; 86592; 86850; 86900; 86901; 88307; A9270; J2371; J3475; J7120

== ENCOUNTER 2025-02-19 11:18 | Outpatient (CLI) | payer BC, SELFPAY ==
[2025-02-21 00:47] LABS: HPV Source Cervix; HPV, High Risk by TMA Not Detected
== END 2025-02-19 11:19 | disposition home or self-care (01) ==
PROVIDERS: Visit Provider Physician Assistant
DX: Z12.4 Encounter for screening for malignant neoplasm of cervix (principal); Z11.51 Encounter for screening for human papillomavirus (HPV)
CPT/HCPCS: 87624; 87625; 88141; 88142